=== PATIENT | male | born 1945 | race Caucasian/White ===

== ENCOUNTER 2017-01-24 17:01 | Inpatient (IN) | payer MEDICAID, MEDICARE ==
--- NOTE | 2017-01-24 17:46 | PCM.HP ---
H&P History of Present Illness - General Date of Service: 01/24/17 Source of Information: Patient, Family History Limitations: Reports: No Limitations - History of Present Illness Initial Comments - Free Text/Narative: Found to be a diabetic 3 weeks ago while in [place]. Found a heel lesion caused from 2 tacks in his shoe which caused a lesion on the heel. He said the lesions were small and in the last week got larger. Onset of Symptoms: Reports: Gradual Location: Reports: Lower Extremity, Right denies Pain Score (Numeric/FACES): 0 - Related Data Allergies/Adverse Reactions: Allergies Allergy/AdvReac Type Severity Reaction Status Date / Time No Known Allergies Allergy Verified 01/24/17 17:28 Home Medications: Home Meds glipiZIDE [Glipizide] 5 mg PO BID 01/24/17 [History] metFORMIN [Glucophage] 500 mg PO BIDMEALS 01/24/17 [History] H&P Review of Systems - Review of Systems: Review Of Systems: See Below General: Reports: Weakness, Fatigue HEENT: Reports: Visual Changes Pulmonary: Reports: No Symptoms Cardiovascular: Reports: No Symptoms Gastrointestinal: Reports: No Symptoms Genitourinary: Reports: No Symptoms Musculoskeletal: Reports: No Symptoms Skin: Reports: No Symptoms Psychiatric: Reports: No Symptoms Neurological: Reports: No Symptoms Hematologic/Lymphatic: Reports: No Symptoms Immunologic: Reports: No Symptoms Exam - Exam Exam: See Below - Vital Signs Weight: 197 lb - Exam General: Alert, Oriented, 4 HEENT: PERRLA, Hearing Intact, Mucosa Moist & [place], Nares Patent, Normal Nasal Septum, Posterior Pharynx Clear, Conjunctiva Clear, EOMI, EACs Clear, TMs Clear Neck: Supple, Trachea Midline, 2 Lungs: Clear to Auscultation, Normal Respiratory Effort Cardiovascular: Regular Rate GI/Abdominal Exam: Normal Bowel Sounds, Soft, Non-Tender, No Organomegaly, No Distention, No Abnormal Bruit, No Mass, Pelvis Stable Back Exam: Normal Inspection, Full Range of Motion, NT Extremities: Other (Pain and LROM right shoulder) Peripheral Pulses: 1+: Radial (L), Radial (R) Skin: Warm, Dry, Intact Neurological: Cranial Nerves Intact, Reflexes Equal Bilateral, Sensation Intact DTR: 1+: Bicep (L), Bicep (R) Psychiatric: Alert, Normal Affect, Normal Mood - Patient Data Result Diagrams: 01/26/17 05:47 01/26/17 05:47 *Q Meaningful Use (ADM) - VTE *Q VTE Criteria *Q: - Stroke *Q Stroke Criteria *Q: - AMI *Q AMI Criteria *Q: Problem List Initiated/Reviewed/Updated: Yes Assessment/Plan Comment:: Assessment/Plan: #1. DM II. Will continue with meds as taking as an out patient #2. Foot ulcer: Was seen by Dr. Lagunas and had debridement. Will start on Antibiotics. Cultures done in the clinic. #3. Right shoulder injury. Will get an x-ray #4. Hypertension. Will follow and treat as needed. #5. Thrombocytosis: May be due to the recent surgery and foot infection will follow closely #6. Anemia
[2017-01-24] MEDS ORDERED: Sodium Chloride 0.9% 10 ML Syringe FLUSH PRN (17:56)
[2017-01-24] MEDS: Vancomycin 1.3 GM in Sodium Chloride 0.9% 250 ML IV SCH (18:28)
[2017-01-24] MEDS: Piperacillin/Tazobactam/Dext 3.375 GM in Premix Bag 1 BAG IV SCH (20:41)
[2017-01-24] MEDS: Acetaminophen 325 MG Tab PO PRN (22:26)
[2017-01-24] MEDS: diphenhydrAMINE 25 MG Cap PO PRN (22:26)
[2017-01-25] MEDS: Piperacillin/Tazobactam/Dext 3.375 GM in Premix Bag 1 BAG IV SCH ×4 (01:55→19:48)
[2017-01-25] MEDS: Acetaminophen 325 MG Tab PO PRN (01:59)
[2017-01-25] MEDS: diphenhydrAMINE 25 MG Cap PO PRN ×2 (01:59→21:55)
[2017-01-25] MEDS: Vancomycin 1.3 GM in Sodium Chloride 0.9% 250 ML IV SCH ×2 (05:52→17:58)
[2017-01-25] MEDS: glipiZIDE 5 MG Tab PO SCH ×2 (08:29→17:04)
[2017-01-25] MEDS: metFORMIN 500 MG Tab PO SCH ×2 (08:30→17:03)
[2017-01-25] MEDS: Enoxaparin 40 MG/0.4 ML Syringe SUBCUT SCH (08:33)
[2017-01-25] MEDS: Aspirin 81 MG Tab.Chew PO SCH (08:58)
[2017-01-25] MEDS: Doxazosin 4 MG Tab PO SCH (09:04)
--- NOTE | 2017-01-25 10:32 | CR ---
Guillermo' view There is no reflux or body within the orbits. The patient is cleared for MRI.
--- NOTE | 2017-01-25 10:57 | CR ---
Right shoulder There is normal alignment. There is joint space loss of the glenohumeral joint. There is soft tissue calcification adjacent to the greater tuberosity. No acute findings are demonstrated. Impression: 1. No acute posttraumatic findings. 2. Osteoarthritis of the glenohumeral joint. 3. Soft tissue calcification suggesting calcific tendinitis versus bursitis.
--- NOTE | 2017-01-25 13:16 | MR ---
Right foot MRI. History: Foot ulcer. Evaluate for osteomyelitis. Technique: The hindfoot and ankle were imaged in the axial, coronal, and sagittal planes utilizing T 1 and T2 with fat saturation techniques. Findings: There is a ulcer involving the plantar aspect of the hindfoot. There is edema of the subcutaneous fa t. There is no evidence for abscess. There is normal marrow signal within the calcaneus. There are n o findings of osteomyelitis. There is a prominent plantar calcaneal spur. There is mild thickening of the plantar fascial. There may be chronic mild fasciitis. The muscles and tendons demonstrate normal signal. There is no joint effusion. Impression: 1. Plantar ulcer of the heel. Mild adjacent cellulitis. No evidence for abscess or osteomyelitis.
--- NOTE | 2017-01-25 17:26 | PCM.PN ---
- General Info Date of Service: 01/25/17 Functional Status: Reports: Pain Controlled - Review of Systems General: Reports: No Symptoms HEENT: Reports: No Symptoms Pulmonary: Reports: No Symptoms Cardiovascular: Reports: No Symptoms Gastrointestinal: Reports: No Symptoms Genitourinary: Reports: No Symptoms Musculoskeletal: Reports: Shoulder Pain, Other (shoulder pain is improving.) Skin: Reports: No Symptoms Neurological: Reports: No Symptoms Psychiatric: Reports: No Symptoms - Patient Data Vitals - Most Recent: Last Vital Signs Temp 98 F 01/25/17 15:00 Pulse 73 01/25/17 15:00 Resp 16 01/25/17 15:00 BP 137/67 01/25/17 15:00 Pulse Ox 96 01/25/17 15:00 Weight - Most Recent: 197 lb 0.011 oz I&O - Last 24 Hours: Intake & Output 01/25/17 01/25/17 01/25/17 06:59 14:59 22:59 Intake Total 350 150 Balance 350 150 Lab Results Last 24 Hours: Laboratory Results - last 24 hr 01/25/17 Range/Units 04:45 WBC 9.2 (4.5-11.0) K/uL RBC 3.12 L (4.30-5.90) M/uL Hgb 9.8 L (12.0-15.0) g/dL Hct 29.7 L (40.0-54.0) % MCV 95 (80-98) fL MCH 31 (27-31) pg MCHC 33 (32-36) % Plt Count 528 H (150-400) K/uL Neut % (Auto) 62 (36-66) % Lymph % (Auto) 20 L (24-44) % [place] % (Auto) 15 H (2-6) % Eos % (Auto) 1 L (2-4) % Baso % (Auto) 2 H (0-1) % Med Orders - Current: Current Medications Acetaminophen (Tylenol) 650 mg PO Q4H PRN PRN Reason: Headache/Pain Last Admin: 01/25/17 01:59 Dose: 650 mg Aspirin (Aspirin) 81 mg PO DAILY [facility] Last Admin: 01/25/17 08:58 Dose: 81 mg Diphenhydramine HCl (Benadryl) 25 mg PO Q4H PRN PRN Reason: Sleep Last Admin: 01/25/17 01:59 Dose: 25 mg Doxazosin Mesylate (Cardura) 4 mg PO DAILY [facility] Last Admin: 01/25/17 09:04 Dose: 4 mg Enoxaparin Sodium (Lovenox) 40 mg SUBCUT DAILY [facility] Last Admin: 01/25/17 08:33 Dose: 40 mg Glipizide (Glucotrol) 5 mg PO BIDAC [facility] Last Admin: 01/25/17 17:04 Dose: 5 mg Vancomycin HCl 1.3 gm/ Sodium (Chloride) 250 mls @ 250 mls/hr IV Q12H [facility] Last Admin: 01/25/17 05:52 Dose: 250 mls/hr Piperacillin/Tazobactam/ (Dextrose 3.375 gm/ Premix) 50 mls @ 100 mls/hr IV Q6H [facility] Last Admin: 01/25/17 14:55 Dose: 100 mls/hr Metformin HCl (Glucophage) 500 mg PO BIDMEALS [facility] Last Admin: 01/25/17 17:03 Dose: 500 mg Sodium Chloride (Saline Flush) 10 ml FLUSH ASDIRECTED PRN PRN Reason: Keep Vein Open - Exam General: Alert, Oriented Neck: Supple Lungs: Clear to Auscultation Cardiovascular: Regular Rate, Regular Rhythm GI/Abdominal Exam: Normal Bowel Sounds, Soft, Non-Tender, No Organomegaly, No Distention, No Abnormal Bruit, No Mass, Pelvis Stable (Male) Exam: Other Back Exam: Normal Inspection, Full Range of Motion Wound/Incisions: Healing Well Psy/Mental Status: Alert, Normal Affect, Normal Mood - Problem List Review Problem List Initiated/Reviewed/Updated: Yes - My Orders Last 24 Hours: My Active Orders 01/24/17 17:56 Patient Status [ADT] Routine Blood Glucose Check, Bedside [RC] QIDACANDBED Height and Weight [RC] DAILY Oxygen Therapy [RC] PRN Up to Chair [RC] QID Vital Signs [RC] Q4H Sodium Chloride 0.9% [Saline Flush] 10 ml FLUSH ASDIRECTED PRN Saline Lock Insert [OM.PC] Routine Resuscitation Status Routine 01/24/17 17:59 Intake and Output [RC] PRN 01/24/17 18:00 Vancomycin 1.3 gm Sodium Chloride 0.9% [Normal Saline] 250 ml IV Q12H 01/24/17 20:00 Piperacillin/Tazobactam/Dext [Zosyn in Dextrose Iso-Osmotic 3.375 GM] 3.375 gm Premix Bag 1 bag IV Q6H 01/24/17 20:42 Acetaminophen [Tylenol] 650 mg PO Q4H PRN diphenhydrAMINE [Benadryl] 25 mg PO Q4H PRN 01/25/17 07:30 glipiZIDE [Glucotrol] 5 mg PO BIDAC 01/25/17 07:45 Diabetes Education [RC] .PRN 01/25/17 08:00 metFORMIN [Glucophage] 500 mg PO BIDMEALS 01/25/17 09:00 Aspirin 81 mg PO DAILY Doxazosin [Cardura] 4 mg PO DAILY Enoxaparin [Lovenox] 40 mg SUBCUT DAILY 01/25/17 Breakfast Consistent Carbohydrate Diet [DIET] 01/26/17 05:11 CBC WITH AUTO DIFF [HEME] DAILY CBC WITH AUTO DIFF [HEME] Routine COMPREHENSIVE METABOLIC PN,CMP [CHEM] Routine 01/26/17 05:45 VANCOMYCIN TROUGH [CHEM] Timed 01/26/17 07:30 GLUCOSE POC LAB TO COLLECT [POC] QIDACANDBED 01/26/17 11:30 GLUCOSE POC LAB TO COLLECT [POC] QIDACANDBED 01/26/17 16:30 GLUCOSE POC LAB TO COLLECT [POC] QIDACANDBED 01/26/17 21:00 GLUCOSE POC LAB TO COLLECT [POC] QIDACANDBED 01/27/17 05:11 CBC WITH AUTO DIFF [HEME] DAILY 01/27/17 07:30 GLUCOSE POC LAB TO COLLECT [POC] QIDACANDBED 01/27/17 11:30 GLUCOSE POC LAB TO COLLECT [POC] QIDACANDBED 01/27/17 16:30 GLUCOSE POC LAB TO COLLECT [POC] QIDACANDBED 01/27/17 21:00 GLUCOSE POC LAB TO COLLECT [POC] QIDACANDBED 01/28/17 07:30 GLUCOSE POC LAB TO COLLECT [POC] QIDACANDBED - Plan Plan:: Assessment/Plan: #1. DM II. Will continue with meds as taking as an out patientand adjust. #2. Foot ulcer: Was seen by Dr. Lagunas and had debridement. On Antibiotics. Cultures done in the clinic pending. #3. Right shoulder injury. Improving #4. Hypertension. Still elevated. #5. Thrombocytosis: Will evaluate and have him see an oncologist if it continues elevated. #6. Anemia Cbc PENDING TOMORROW.
[2017-01-26] MEDS: Piperacillin/Tazobactam/Dext 3.375 GM in Premix Bag 1 BAG IV SCH ×4 (01:10→19:31)
[2017-01-26] MEDS: Vancomycin 1.3 GM in Sodium Chloride 0.9% 250 ML IV SCH ×2 (05:12→18:09)
--- NOTE | 2017-01-26 07:32 | PN ---
DATE OF SERVICE: 01/25/2017 SUBJECTIVE: The patient was seen at bedside for followup on infected ulcer in the right foot. The patient denies having any other problems. OBJECTIVE: GENERAL: The patient was alert and oriented x3 and in no acute distress. VITAL SIGNS: Per chart. DERMATOLOGIC: Examination revealed ulceration on the plantar lateral aspect of the right heel measured after debridement of necrotic tissue, 16 mm x 26 mm x 5 mm of depth and did not probe to bone. There was some yellow fibrotic and necrotic tissue around the edges of the wound, so after this was debrided, there was healthy bleeding tissue underneath. IMAGING: Radiographic examination, MRI done today of the right foot showed no signs of osteomyelitis in the right calcaneus, however, there were signs of cellulitis. LABORATORY DATA: His white count was 9.2. ASSESSMENT: 1. Diabetes mellitus. 2. Diabetic polyneuropathy. 3. Diabetic foot ulcer, right heel with cellulitis. PLAN: The patient was examined and evaluated. Ulceration was again sharply debrided to remove necrotic and fibrotic tissue down into the layer of the plantar fascia and then it was flushed with copious amounts of sterile saline and dressed with saline wet-to-dry, 4x4, Kerlix, and Coban. Orders were written for patient to remain nonweightbearing on the right foot. Keep peripheral boot on when the patient is in bed in order to keep the heel offloaded and patient is to continue IV Vanco per pharmacy dosing and IV Zosyn. The patient will be seen only by Dr. Estrada tomorrow and then by Dr. Teague on . Ordered PICC line today so that IV antibiotics should be continued and possibly will be continued after discharge. It is okay for Dr. Teague to discuss discharge of the patient on , provided that he has improved and Dr. Rahul Estrada is in agreement. We were asking if Dr. Teague can please check the patient's cultures that were taken yesterday, so that he can send patient home on appropriate antibiotics. Janak Lagunas DPM /[id number]
[2017-01-26] MEDS: glipiZIDE 5 MG Tab PO SCH ×2 (07:52→16:41)
[2017-01-26] MEDS: metFORMIN 500 MG Tab PO SCH ×2 (07:52→16:41)
[2017-01-26] MEDS: Doxazosin 4 MG Tab PO SCH (08:55)
[2017-01-26] MEDS: Aspirin 81 MG Tab.Chew PO SCH (08:57)
[2017-01-26] MEDS: Enoxaparin 40 MG/0.4 ML Syringe SUBCUT SCH (08:57)
--- NOTE | 2017-01-26 17:21 | PCM.PN ---
- General Info Date of Service: 01/26/17 Functional Status: Reports: Pain Controlled - Review of Systems HEENT: Reports: No Symptoms Pulmonary: Reports: No Symptoms, Shortness of Breath, Cough Cardiovascular: Reports: No Symptoms Gastrointestinal: Reports: No Symptoms Genitourinary: Reports: No Symptoms Musculoskeletal: Reports: No Symptoms Skin: Reports: No Symptoms Neurological: Reports: No Symptoms Psychiatric: Reports: No Symptoms - Patient Data Vitals - Most Recent: Last Vital Signs Temp 97.5 F 01/26/17 15:51 Pulse 82 01/26/17 15:51 Resp 16 01/26/17 15:51 BP 135/70 01/26/17 15:51 Pulse Ox 95 01/26/17 15:51 Weight - Most Recent: 197 lb 0.011 oz I&O - Last 24 Hours: Intake & Output 01/26/17 01/26/17 01/26/17 06:59 14:59 22:59 Intake Total 876 Output Total 2000 Balance -1124 Lab Results Last 24 Hours: Laboratory Results - last 24 hr 01/26/17 01/26/17 Range/Units 05:47 05:47 WBC 7.4 (4.5-11.0) K/uL RBC 3.21 L (4.30-5.90) M/uL Hgb 10.0 L (12.0-15.0) g/dL Hct 30.7 L (40.0-54.0) % MCV 96 (80-98) fL MCH 31 (27-31) pg MCHC 33 (32-36) % Plt Count 500 H (150-400) K/uL Neut % (Auto) 62 (36-66) % Lymph % (Auto) 21 L (24-44) % [place] % (Auto) 12 H (2-6) % Eos % (Auto) 2 (2-4) % Baso % (Auto) 3 H (0-1) % Sodium 133 L (140-148) mmol/L Potassium 4.1 (3.6-5.2) mmol/L Chloride 101 (100-108) mmol/L Carbon Dioxide 25 (21-32) mmol/L Anion Gap 11.1 (5.0-14.0) mmol/L BUN 10 (7-18) mg/dL Creatinine 0.8 (0.8-1.3) mg/dL Est Cr Clr Drug Dosing 80.13 mL/min Estimated GFR (MDRD) > 60 (>60) Glucose 88 (74-106) mg/dL Calcium 8.3 L (8.5-10.1) mg/dL Total Bilirubin 0.4 (0.2-1.0) mg/dL AST 31 (15-37) U/L ALT 42 (12-78) U/L Alkaline Phosphatase 79 (46-116) U/L Total Protein 6.9 (6.4-8.2) g/dL Albumin 1.8 L (3.4-5.0) g/dL Globulin 5.1 H (2.3-3.5) g/dL Albumin/Globulin Ratio 0.4 L (1.2-2.2) Med Orders - Current: Current Medications Acetaminophen (Tylenol) 650 mg PO Q4H PRN PRN Reason: Headache/Pain Last Admin: 01/25/17 01:59 Dose: 650 mg Aspirin (Aspirin) 81 mg PO DAILY [facility] Last Admin: 01/26/17 08:57 Dose: 81 mg Diphenhydramine HCl (Benadryl) 25 mg PO Q4H PRN PRN Reason: Sleep Last Admin: 01/25/17 21:55 Dose: 25 mg Doxazosin Mesylate (Cardura) 4 mg PO DAILY [facility] Last Admin: 01/26/17 08:55 Dose: 4 mg Enoxaparin Sodium (Lovenox) 40 mg SUBCUT DAILY [facility] Last Admin: 01/26/17 08:57 Dose: 40 mg Glipizide (Glucotrol) 5 mg PO BIDAC [facility] Last Admin: 01/26/17 16:41 Dose: 5 mg Vancomycin HCl 1.3 gm/ Sodium (Chloride) 250 mls @ 250 mls/hr IV Q12H [facility] Last Admin: 01/26/17 05:12 Dose: 250 mls/hr Piperacillin/Tazobactam/ (Dextrose 3.375 gm/ Premix) 50 mls @ 100 mls/hr IV Q6H [facility] Last Admin: 01/26/17 15:05 Dose: 100 mls/hr Metformin HCl (Glucophage) 500 mg PO BIDMEALS [facility] Last Admin: 01/26/17 16:41 Dose: 500 mg Sodium Chloride (Saline Flush) 10 ml FLUSH ASDIRECTED PRN PRN Reason: Keep Vein Open - Exam General: Alert Neck: Supple Lungs: Clear to Auscultation Cardiovascular: Regular Rate GI/Abdominal Exam: Normal Bowel Sounds Extremities: Other (lesion of the foot -heel stable) Skin: Warm, Dry, Intact Wound/Incisions: Healing Well Psy/Mental Status: Alert, Normal Affect, Normal Mood - Problem List Review Problem List Initiated/Reviewed/Updated: Yes - My Orders Last 24 Hours: My Active Orders 01/26/17 14:31 Chest 1V Frontal [CR] Routine 01/27/17 05:11 CBC WITH AUTO DIFF [HEME] DAILY 01/27/17 05:30 VANCOMYCIN TROUGH [CHEM] Timed 01/27/17 07:30 GLUCOSE POC LAB TO COLLECT [POC] QIDACANDBED 01/27/17 11:30 GLUCOSE POC LAB TO COLLECT [POC] QIDACANDBED 01/27/17 16:30 GLUCOSE POC LAB TO COLLECT [POC] QIDACANDBED 01/27/17 21:00 GLUCOSE POC LAB TO COLLECT [POC] QIDACANDBED 01/28/17 07:30 GLUCOSE POC LAB TO COLLECT [POC] QIDACANDBED - Plan Plan:: Assessment/Plan: #1. DM II. Will continue with meds as taking as an out patientand adjust.Blood sugar 133 this AM #2. Foot ulcer: Was seen by Dr. Lagunas and had debridement. On Antibiotics. Cultures done in the clinic pending. #3. Right shoulder injury. Improving #4. Hypertension. 118 systolic this afternoon. #5. Thrombocytosis: Will dropped to 500,000 today. #6. Anemia Cbc PENDING TOMORROW.
[2017-01-26] MEDS: diphenhydrAMINE 25 MG Cap PO PRN (22:33)
[2017-01-27] MEDS: Piperacillin/Tazobactam/Dext 3.375 GM in Premix Bag 1 BAG IV SCH ×3 (01:55→13:08)
[2017-01-27] MEDS: Vancomycin 1.3 GM in Sodium Chloride 0.9% 250 ML IV SCH (05:04)
[2017-01-27] MEDS: glipiZIDE 5 MG Tab PO SCH ×2 (08:25→16:34)
[2017-01-27] MEDS: Aspirin 81 MG Tab.Chew PO SCH (08:25)
[2017-01-27] MEDS: metFORMIN 500 MG Tab PO SCH ×2 (08:25→16:35)
[2017-01-27] MEDS: Doxazosin 4 MG Tab PO SCH (08:25)
[2017-01-27] MEDS: Enoxaparin 40 MG/0.4 ML Syringe SUBCUT SCH (08:46)
--- NOTE | 2017-01-27 10:06 | CR ---
Portable chest Limited study was performed for PICC line placement. The PIC line on the left is demonstrated with the tip at the Junction of the SVC and right atrium. Impression: 1. PICC line in good position.
--- NOTE | 2017-01-27 12:46 | PCM.PN ---
- General Info Date of Service: 01/27/17 Functional Status: Reports: Pain Controlled - Review of Systems General: Reports: No Symptoms HEENT: Reports: No Symptoms Pulmonary: Reports: No Symptoms Cardiovascular: Reports: No Symptoms Gastrointestinal: Reports: No Symptoms Genitourinary: Reports: No Symptoms Musculoskeletal: Reports: No Symptoms Neurological: Reports: No Symptoms Psychiatric: Reports: No Symptoms - Patient Data Vitals - Most Recent: Last Vital Signs Temp 96.7 F 01/27/17 11:40 Pulse 74 01/27/17 11:40 Resp 16 01/27/17 11:40 BP 138/73 01/27/17 11:40 Pulse Ox 100 01/27/17 11:40 Weight - Most Recent: 189 lb 9.561 oz I&O - Last 24 Hours: Intake & Output 01/26/17 01/27/17 01/27/17 22:59 06:59 14:59 Intake Total 3300 710 480 Output Total 700 300 Balance 3300 10 180 Lab Results Last 24 Hours: Laboratory Results - last 24 hr 01/27/17 01/27/17 Range/Units 04:45 04:45 WBC 7.3 (4.5-11.0) K/uL RBC 3.03 L (4.30-5.90) M/uL Hgb 9.3 L (12.0-15.0) g/dL Hct 29.2 L (40.0-54.0) % MCV 96 (80-98) fL MCH 31 (27-31) pg MCHC 32 (32-36) % Plt Count 519 H (150-400) K/uL Neut % (Auto) 60 (36-66) % Lymph % (Auto) 23 L (24-44) % [place] % (Auto) 13 H (2-6) % Eos % (Auto) 2 (2-4) % Baso % (Auto) 2 H (0-1) % Vancomycin Trough 12.3 (10.0-20.0) ug/mL Med Orders - Current: Current Medications Acetaminophen (Tylenol) 650 mg PO Q4H PRN PRN Reason: Headache/Pain Last Admin: 01/25/17 01:59 Dose: 650 mg Aspirin (Aspirin) 81 mg PO DAILY [facility] Last Admin: 01/27/17 08:25 Dose: 81 mg Diphenhydramine HCl (Benadryl) 25 mg PO Q4H PRN PRN Reason: Sleep Last Admin: 01/26/17 22:33 Dose: 25 mg Doxazosin Mesylate (Cardura) 4 mg PO DAILY [facility] Last Admin: 01/27/17 08:25 Dose: 4 mg Enoxaparin Sodium (Lovenox) 40 mg SUBCUT DAILY [facility] Last Admin: 01/27/17 08:46 Dose: 40 mg Glipizide (Glucotrol) 5 mg PO BIDAC [facility] Last Admin: 01/27/17 08:25 Dose: 5 mg Vancomycin HCl 1.3 gm/ Sodium (Chloride) 250 mls @ 250 mls/hr IV Q12H [facility] Last Admin: 01/27/17 05:04 Dose: 250 mls/hr Piperacillin/Tazobactam/ (Dextrose 3.375 gm/ Premix) 50 mls @ 100 mls/hr IV Q6H [facility] Last Admin: 01/27/17 08:34 Dose: 100 mls/hr Metformin HCl (Glucophage) 500 mg PO BIDMEALS [facility] Last Admin: 01/27/17 08:25 Dose: 500 mg Sodium Chloride (Saline Flush) 10 ml FLUSH ASDIRECTED PRN PRN Reason: Keep Vein Open - Exam General: Alert, Oriented HEENT: Pupils Equal, Pupils Reactive, EOMI, Mucous Membr. Moist/[place] Neck: Supple Lungs: Clear to Auscultation, Normal Respiratory Effort Cardiovascular: Regular Rate, Regular Rhythm GI/Abdominal Exam: Normal Bowel Sounds, Soft, Non-Tender, No Organomegaly, No Distention, No Abnormal Bruit, No Mass, Pelvis Stable Back Exam: Normal Inspection, Full Range of Motion Extremities: Other (heel healing) Skin: Warm, Dry, Intact Wound/Incisions: Healing Well - Problem List Review Problem List Initiated/Reviewed/Updated: Yes - My Orders Last 24 Hours: My Active Orders 01/28/17 07:30 GLUCOSE POC LAB TO COLLECT [POC] QIDACANDBED - Plan Plan:: Assessment/Plan: #1. DM II. Will continue with meds as taking as an out patientand adjust.Blood sugar 80 this AM #2. Foot ulcer: Was seen by Dr. Lagunas and had debridement. On Antibiotics. Will be seen by Dr Teague got orders for antibiotics/pic. #3. Right shoulder injury. Improving #4. Hypertension. 118 systolic this afternoon. #5. Thrombocytosis: Will dropped to 500,000 today. #6. Anemia Cbc 9.3 hb and wbc 7.3. Plan home today
--- NOTE | 2017-01-27 12:48 | PCM.DCSUM1 ---
Discharge Summary - Hospital Course HPI Initial Comments: Found to be a diabetic 3 weeks ago while in [place]. Found a heel lesion caused from 2 tacks in his shoe which caused a lesion on the heel. He said the lesions were small and in the last week got larger. Brief History: Seen by Dr. Lagunas and debrided the heel and brought into the hospital for treatment and antiobitics. Followed DM II and had education for DM control. - Discharge Data Discharge Date: 01/27/17 Discharge Disposition: Home, Self-Care 01 Condition: Good - Patient Summary/Data Hospital Course: MRI was Neg. for osteo. cultures pending and will go home on IV meds for the infection ELIZA is pending prior to discharge. - Patient Instructions Diet: Heart Healthy Diet, Diabetic Diet Activity: As Tolerated Wound/Incision Care: Keep Operative Site/Wound Site Clean and Dry - Discharge Plan Home Medications: Home Meds glipiZIDE [Glipizide] 5 mg PO BID 01/24/17 [History] metFORMIN [Glucophage] 500 mg PO BIDMEALS 01/24/17 [History] Aspirin 81 mg PO DAILY tab.chew 01/27/17 [Rx] Doxazosin [Cardura] 4 mg PO DAILY tablet 01/27/17 [Rx] - Discharge Summary/Plan Comment DC Time >30 min.: Yes Discharge Summary/Plan Comment: DMII, Diabetic foot ulcer, HTN. Polycythesia. - Patient Data Vitals - Most Recent: Last Vital Signs Temp 96.7 F 01/27/17 11:40 Pulse 74 01/27/17 11:40 Resp 16 01/27/17 11:40 BP 138/73 01/27/17 11:40 Pulse Ox 100 01/27/17 11:40 Weight - Most Recent: 189 lb 9.561 oz I&O - Last 24 hours: Intake & Output 01/26/17 01/27/17 01/27/17 22:59 06:59 14:59 Intake Total 3300 710 480 Output Total 700 300 Balance 3300 10 180 Lab Results - Last 24 hrs: Laboratory Results - last 24 hr 01/27/17 01/27/17 Range/Units 04:45 04:45 WBC 7.3 (4.5-11.0) K/uL RBC 3.03 L (4.30-5.90) M/uL Hgb 9.3 L (12.0-15.0) g/dL Hct 29.2 L (40.0-54.0) % MCV 96 (80-98) fL MCH 31 (27-31) pg MCHC 32 (32-36) % Plt Count 519 H (150-400) K/uL Neut % (Auto) 60 (36-66) % Lymph % (Auto) 23 L (24-44) % [place] % (Auto) 13 H (2-6) % Eos % (Auto) 2 (2-4) % Baso % (Auto) 2 H (0-1) % Vancomycin Trough 12.3 (10.0-20.0) ug/mL Med Orders - Current: Current Medications Acetaminophen (Tylenol) 650 mg PO Q4H PRN PRN Reason: Headache/Pain Last Admin: 01/25/17 01:59 Dose: 650 mg Aspirin (Aspirin) 81 mg PO DAILY [facility] Last Admin: 01/27/17 08:25 Dose: 81 mg Diphenhydramine HCl (Benadryl) 25 mg PO Q4H PRN PRN Reason: Sleep Last Admin: 01/26/17 22:33 Dose: 25 mg Doxazosin Mesylate (Cardura) 4 mg PO DAILY [facility] Last Admin: 01/27/17 08:25 Dose: 4 mg Enoxaparin Sodium (Lovenox) 40 mg SUBCUT DAILY [facility] Last Admin: 01/27/17 08:46 Dose: 40 mg Glipizide (Glucotrol) 5 mg PO BIDAC [facility] Last Admin: 01/27/17 08:25 Dose: 5 mg Vancomycin HCl 1.3 gm/ Sodium (Chloride) 250 mls @ 250 mls/hr IV Q12H [facility] Last Admin: 01/27/17 05:04 Dose: 250 mls/hr Piperacillin/Tazobactam/ (Dextrose 3.375 gm/ Premix) 50 mls @ 100 mls/hr IV Q6H [facility] Last Admin: 01/27/17 08:34 Dose: 100 mls/hr Metformin HCl (Glucophage) 500 mg PO BIDMEALS [facility] Last Admin: 01/27/17 08:25 Dose: 500 mg Sodium Chloride (Saline Flush) 10 ml FLUSH ASDIRECTED PRN PRN Reason: Keep Vein Open *Q Meaningful Use (DIS) - VTE *Q VTE Criteria *Q: - Stroke *Q Stroke Criteria *Q: - AMI *Q AMI Criteria *Q:
--- NOTE | 2017-01-27 12:50 | PCM.HP ---
H&P History of Present Illness - General Date of Service: 01/24/17 Admit Problem/Dx: Admission Diagnosis/Problem Admission Diagnosis/Problem Diabetic foot ulcer - History of Present Illness Initial Comments - Free Text/Narative: Comes in after having a foot ulcer and debrided at the clinic by Dr. Payan. Recent know DM II denies Pain Score (Numeric/FACES): 0 - Related Data Allergies/Adverse Reactions: Allergies Allergy/AdvReac Type Severity Reaction Status Date / Time No Known Allergies Allergy Verified 01/24/17 17:28 Home Medications: Home Meds glipiZIDE [Glipizide] 5 mg PO BID 01/24/17 [History] metFORMIN [Glucophage] 500 mg PO BIDMEALS 01/24/17 [History] Past Medical History Musculoskeletal History: Reports: Arthritis Endocrine/Metabolic History: Reports: Diabetes, Type II Oncologic (Cancer) History: Reports: Basal Cell Carcinoma - Infectious Disease History Infectious Disease History: Reports: Chicken Pox, Measles, Mumps - Past Surgical History HEENT Surgical History: Reports: Adenoidectomy, Tonsillectomy Social & Family History - Family History Family Medical History: Noncontributory - Tobacco Use Smoking Status *Q: Never Smoker Second Hand Smoke Exposure: No - Alcohol Use Days Per Week of Alcohol Use: 5 Number of Drinks Per Day: 1 Total Drinks Per Week: 5 Date of Last Drink: 01/22/17 Time of Last Drink: 18:00 - Recreational Drug Use Recreational Drug Use: No Exam - Vital Signs Vital Signs: Last Vital Signs Temp 96.7 F 01/27/17 11:40 Pulse 74 01/27/17 11:40 Resp 16 01/27/17 11:40 BP 138/73 01/27/17 11:40 Pulse Ox 100 01/27/17 11:40 Weight: 189 lb 9.561 oz - Patient Data Lab Results Last 24 hrs: Laboratory Results - last 24 hr 01/27/17 01/27/17 Range/Units 04:45 04:45 WBC 7.3 (4.5-11.0) K/uL RBC 3.03 L (4.30-5.90) M/uL Hgb 9.3 L (12.0-15.0) g/dL Hct 29.2 L (40.0-54.0) % MCV 96 (80-98) fL MCH 31 (27-31) pg MCHC 32 (32-36) % Plt Count 519 H (150-400) K/uL Neut % (Auto) 60 (36-66) % Lymph % (Auto) 23 L (24-44) % [place] % (Auto) 13 H (2-6) % Eos % (Auto) 2 (2-4) % Baso % (Auto) 2 H (0-1) % Vancomycin Trough 12.3 (10.0-20.0) ug/mL Result Diagrams: 01/27/17 04:45 01/26/17 05:47 *Q Meaningful Use (ADM) - VTE *Q VTE Criteria *Q: - Stroke *Q Stroke Criteria *Q: - AMI *Q AMI Criteria *Q: Orders Last 24hrs: Active Orders 24 hr Category Date Time Status GLUCOSE POC LAB TO COLLECT [POC] QIDACANDBED Lab 01/28/17 07:30 Ordered Medication Orders Acetaminophen (Tylenol) 650 mg PO Q4H PRN PRN Reason: Headache/Pain Last Admin: 01/25/17 01:59 Dose: 650 mg Admin: 01/24/17 22:26 Dose: 650 mg Aspirin (Aspirin) 81 mg PO DAILY [facility] Last Admin: 01/27/17 08:25 Dose: 81 mg Admin: 01/26/17 08:57 Dose: 81 mg Admin: 01/25/17 08:58 Dose: 81 mg Diphenhydramine HCl (Benadryl) 25 mg PO Q4H PRN PRN Reason: Sleep Last Admin: 01/26/17 22:33 Dose: 25 mg Admin: 01/25/17 21:55 Dose: 25 mg Admin: 01/25/17 01:59 Dose: 25 mg Admin: 01/24/17 22:26 Dose: 25 mg Doxazosin Mesylate (Cardura) 4 mg PO DAILY [facility] Last Admin: 01/27/17 08:25 Dose: 4 mg Admin: 01/26/17 08:55 Dose: 4 mg Admin: 01/25/17 09:04 Dose: 4 mg Enoxaparin Sodium (Lovenox) 40 mg SUBCUT DAILY [facility] Last Admin: 01/27/17 08:46 Dose: 40 mg Admin: 01/26/17 08:57 Dose: 40 mg Admin: 01/25/17 08:33 Dose: 40 mg Glipizide (Glucotrol) 5 mg PO BIDAC [facility] Last Admin: 01/27/17 08:25 Dose: 5 mg Admin: 01/26/17 16:41 Dose: 5 mg Admin: 01/26/17 07:52 Dose: 5 mg Admin: 01/25/17 17:04 Dose: 5 mg Admin: 01/25/17 08:29 Dose: 5 mg Vancomycin HCl 1.3 gm/ Sodium (Chloride) 250 mls @ 250 mls/hr IV Q12H [facility] Last Admin: 01/27/17 05:04 Dose: 250 mls/hr Admin: 01/26/17 18:09 Dose: 250 mls/hr Admin: 01/26/17 05:12 Dose: 250 mls/hr Admin: 01/25/17 17:58 Dose: 250 mls/hr Admin: 01/25/17 05:52 Dose: 250 mls/hr Admin: 01/24/17 18:28 Dose: 250 mls/hr Piperacillin/Tazobactam/ (Dextrose 3.375 gm/ Premix) 50 mls @ 100 mls/hr IV Q6H [facility] Last Admin: 01/27/17 08:34 Dose: 100 mls/hr Infusion: 01/27/17 02:25 Dose: 100 mls/hr Admin: 01/27/17 01:55 Dose: 100 mls/hr Infusion: 01/26/17 20:01 Dose: 100 mls/hr Admin: 01/26/17 19:31 Dose: 100 mls/hr Infusion: 01/26/17 15:35 Dose: 100 mls/hr Admin: 01/26/17 15:05 Dose: 100 mls/hr Infusion: 01/26/17 08:39 Dose: 100 mls/hr Admin: 01/26/17 08:09 Dose: 100 mls/hr Infusion: 01/26/17 01:40 Dose: 100 mls/hr Admin: 01/26/17 01:10 Dose: 100 mls/hr Infusion: 01/25/17 20:18 Dose: 100 mls/hr Admin: 01/25/17 19:48 Dose: 100 mls/hr Infusion: 01/25/17 15:25 Dose: 100 mls/hr Admin: 01/25/17 14:55 Dose: 100 mls/hr Infusion: 01/25/17 08:59 Dose: 100 mls/hr Admin: 01/25/17 08:29 Dose: 100 mls/hr Infusion: 01/25/17 02:25 Dose: 100 mls/hr Admin: 01/25/17 01:55 Dose: 100 mls/hr Infusion: 01/24/17 21:11 Dose: 100 mls/hr Admin: 01/24/17 20:41 Dose: 100 mls/hr Metformin HCl (Glucophage) 500 mg PO BIDMEALS MELISSA Last Admin: 01/27/17 08:25 Dose: 500 mg Admin: 01/26/17 16:41 Dose: 500 mg Admin: 01/26/17 07:52 Dose: 500 mg Admin: 01/25/17 17:03 Dose: 500 mg Admin: 01/25/17 08:30 Dose: 500 mg Sodium Chloride (Saline Flush) 10 ml FLUSH ASDIRECTED PRN PRN Reason: Keep Vein Open Assessment/Plan Comment:: Assessment/Plan: #1. DM II. Will continue with meds as taking as an out patientand adjust.Blood sugar 80 this AM #2. Foot ulcer: Was seen by Dr. Lagunas and had debridement. On Antibiotics. Will be seen by Dr Teague got orders for antibiotics/pic. #3. Right shoulder injury. Improving #4. Hypertension. 118 systolic this afternoon. #5. Thrombocytosis: Will dropped to 500,000 today. #6. Anemia Cbc 9.3 hb and wbc 7.3. Plan home today
[2017-01-27 16:44] VITALS: BP 156/67
[2017-01-27] MEDS ORDERED: Vancomycin 1.3 GM in Sodium Chloride 0.9% 250 ML IV ONE (17:00)
== END 2017-01-27 17:33 | disposition home or self-care (01) | DRG 638 ==
LOC: JP.ICU 17:01
PROVIDERS: ADMIT Internal Medicine; ATTEND Internal Medicine
PROC: 0HDMXZZ Extraction of Right Foot Skin, External Approach (ICD-10-PCS; principal; 2017-01-25)
PROC: 05H533Z Insertion of Infusion Device into Right Subclavian Vein, Percutaneous Approach (ICD-10-PCS; 2017-01-26)
DX: E11.621 Type 2 diabetes mellitus with foot ulcer (principal); L97.419 Non-pressure chronic ulcer of right heel and midfoot with unspecified severity; L03.115 Cellulitis of right lower limb; Z79.84 Long term (current) use of oral hypoglycemic drugs; E11.628 Type 2 diabetes mellitus with other skin complications; I10 Essential (primary) hypertension; S49.91XA Unspecified injury of right shoulder and upper arm, initial encounter; E11.42 Type 2 diabetes mellitus with diabetic polyneuropathy; D47.3 Essential (hemorrhagic) thrombocythemia; D64.9 Anemia, unspecified; Z79.82 Long term (current) use of aspirin
CPT/HCPCS: 36415; 70030-26; 70030-50; 71010; 71010-26; 73030-26-RT; 73030-RT; 73718-26-RT; 73718-RT; 80053; 80202; 82962; 85025; 93922; A9270-GY; J1650; J2543; J3370; J7050

== ENCOUNTER 2017-07-26 17:29 | Inpatient (IN) | payer MEDICARE ==
[2017-07-26] MEDS ORDERED: Adenosine 6 MG/2 ML SDV IVPUSH ONE ×2 (17:38→17:58)
--- NOTE | 2017-07-26 17:45 | EDM.PDOC ---
ED HPI GENERAL MEDICAL PROBLEM - General Chief Complaint: Cardiovascular Problem Stated Complaint: [facility] Time Seen by Provider: 07/26/17 17:59 Source of Information: Reports: Patient History Limitations: Reports: No Limitations - History of Present Illness INITIAL COMMENTS - FREE TEXT/NARRATIVE: pt was at Dr Cortez office today--am and he was checked over. His heartrate was about 80. He went home and he noted that he was very dizzy when he stood up. He felt like his heart was going rapid. He did not have a any chest pain Onset: Today Duration: Hour(s): Location: Reports: Chest, Other (pt feels like his heart is racing. ) - Related Data Allergies Allergy/AdvReac Type Severity Reaction Status Date / Time No Known Allergies Allergy Verified 02/21/17 09:44 Home Meds: Home Meds glipiZIDE [Glipizide] 5 mg PO BID 01/24/17 [History] metFORMIN [Glucophage] 500 mg PO BIDMEALS 01/24/17 [History] Aspirin 81 mg PO DAILY tab.chew 01/27/17 [Rx] Doxazosin [Cardura] 4 mg PO DAILY tablet 01/27/17 [Rx] Past Medical History Musculoskeletal History: Reports: Arthritis Endocrine/Metabolic History: Reports: Diabetes, Type II Oncologic (Cancer) History: Reports: Basal Cell Carcinoma - Infectious Disease History Infectious Disease History: Reports: Chicken Pox, Measles, Mumps - Past Surgical History HEENT Surgical History: Reports: Adenoidectomy, Tonsillectomy Social & Family History - Family History Family Medical History: Noncontributory - Tobacco Use Smoking Status *Q: Never Smoker Second Hand Smoke Exposure: No - Alcohol Use Days Per Week of Alcohol Use: 5 Number of Drinks Per Day: 1 Total Drinks Per Week: 5 - Recreational Drug Use Recreational Drug Use: No ED ROS GENERAL - Review of Systems Review Of Systems: See Below Constitutional: Reports: No Symptoms HEENT: Reports: No Symptoms Respiratory: Reports: No Symptoms Cardiovascular: Reports: Lightheadedness, Palpitations Endocrine: Reports: No Symptoms GI/Abdominal: Reports: No Symptoms : Reports: No Symptoms Musculoskeletal: Reports: No Symptoms Skin: Reports: No Symptoms ED EXAM, GENERAL - Physical Exam Exam: See Below Free Text/Narrative:: pt arrived with a history of being very dizzy and and weak when he goes to stand up. Exam Limited By: No Limitations General Appearance: Alert, Anxious, Mild Distress, Other (pupils equal and reactive. ) Ears: Normal TMs Nose: Normal Inspection Throat/Mouth: Normal Inspection Head: Atraumatic Neck: Normal Inspection Respiratory/Chest: No Respiratory Distress Cardiovascular: Regular Rate, Rhythm, Tachycardia GI/Abdominal: Soft, Non-Tender (Male) Exam: Deferred Rectal (Males) Exam: Deferred Back Exam: Normal Inspection Extremities: Normal Inspection Neurological: Alert, Oriented, Normal Cognition, Other ( very pale appearing. ) Psychiatric: Anxious Course - Vital Signs Last Recorded V/S: Last Vital Signs Temp 36.6 C 07/28/17 00:00 Pulse 77 07/28/17 06:00 Resp 26 H 07/28/17 06:00 BP 110/76 07/28/17 06:00 Pulse Ox 92 L 07/28/17 06:00 - Orders/Labs/Meds Orders: Medication Orders Aspirin (Halfprin) 81 mg PO DAILY [facility] Last Admin: 07/27/17 08:22 Dose: 81 mg Diltiazem HCl (Cardizem Cd) 120 mg PO BID [facility] Last Admin: 07/27/17 20:43 Dose: 120 mg Doxazosin Mesylate (Cardura) 4 mg PO DAILY [facility] Last Admin: 07/27/17 08:24 Dose: Enoxaparin Sodium (Lovenox) 30 mg SUBCUT BEDTIME [facility] Last Admin: 07/27/17 20:42 Dose: 30 mg Glipizide (Glucotrol) 5 mg PO BIDAC [facility] Last Admin: 07/27/17 16:25 Dose: 5 mg Admin: 07/27/17 08:21 Dose: 5 mg Admin: 07/26/17 20:53 Dose: 5 mg Metformin HCl (Glucophage Xr) 500 mg PO BIDMEALS [facility] Last Admin: 07/27/17 17:39 Dose: 500 mg Tamsulosin HCl (Flomax) 0.4 mg PO BEDTIME [facility] Last Admin: 07/27/17 20:43 Dose: 0.4 mg Labs: Laboratory Tests 07/26/17 07/26/17 07/26/17 Range/Units 17:39 17:39 17:39 WBC 8.9 (4.5-11.0) K/uL RBC 3.50 L (4.30-5.90) M/uL Hgb 11.1 L (12.0-15.0) g/dL Hct 31.7 L (40.0-54.0) % MCV 91 (80-98) fL MCH 32 H (27-31) pg MCHC 35 (32-36) % Plt Count 282 (150-400) K/uL Neut % (Auto) 77 H (36-66) % Lymph % (Auto) 10 L (24-44) % [place] % (Auto) 12 H (2-6) % Eos % (Auto) 1 L (2-4) % Baso % (Auto) 0 (0-1) % Sodium 110 L* (140-148) mmol/L Potassium 5.5 H (3.6-5.2) mmol/L Chloride 77 L (100-108) mmol/L Carbon Dioxide 19 L (21-32) mmol/L Anion Gap 19.5 H (5.0-14.0) mmol/L BUN 23 H D (7-18) mg/dL Creatinine 1.0 (0.8-1.3) mg/dL Est Cr Clr Drug Dosing 66.50 mL/min Estimated GFR (MDRD) > 60 (>60) Glucose 155 H (74-106) mg/dL Calcium 7.8 L (8.5-10.1) mg/dL Total Bilirubin 0.6 (0.2-1.0) mg/dL AST 27 (15-37) U/L ALT 51 (12-78) U/L Alkaline Phosphatase 70 (46-116) U/L Troponin I < 0.017 (0.000-0.056) ng/mL Total Protein 6.0 L (6.4-8.2) g/dL Albumin 2.8 L (3.4-5.0) g/dL Globulin 3.2 (2.3-3.5) g/dL Albumin/Globulin Ratio 0.9 L (1.2-2.2) TSH, Ultra Sensitive (0.358-3.740) uIU/mL 07/26/17 Range/Units 17:39 WBC (4.5-11.0) K/uL RBC (4.30-5.90) M/uL Hgb (12.0-15.0) g/dL Hct (40.0-54.0) % MCV (80-98) fL MCH (27-31) pg MCHC (32-36) % Plt Count (150-400) K/uL Neut % (Auto) (36-66) % Lymph % (Auto) (24-44) % [place] % (Auto) (2-6) % Eos % (Auto) (2-4) % Baso % (Auto) (0-1) % Sodium (140-148) mmol/L Potassium (3.6-5.2) mmol/L Chloride (100-108) mmol/L Carbon Dioxide (21-32) mmol/L Anion Gap (5.0-14.0) mmol/L BUN (7-18) mg/dL Creatinine (0.8-1.3) mg/dL Est Cr Clr Drug Dosing mL/min Estimated GFR (MDRD) (>60) Glucose (74-106) mg/dL Calcium (8.5-10.1) mg/dL Total Bilirubin (0.2-1.0) mg/dL AST (15-37) U/L ALT (12-78) U/L Alkaline Phosphatase (46-116) U/L Troponin I (0.000-0.056) ng/mL Total Protein (6.4-8.2) g/dL Albumin (3.4-5.0) g/dL Globulin (2.3-3.5) g/dL Albumin/Globulin Ratio (1.2-2.2) TSH, Ultra Sensitive 2.399 (0.358-3.740) uIU/mL Meds: Medications Generic Name Dose Route Start Last Admin Trade Name [place] PRN Reason Stop Dose Admin Aspirin 81 mg 07/27/17 09:00 07/27/17 08:22 Halfprin PO 81 mg DAILY MELISSA Administration Diltiazem HCl 120 mg 07/27/17 21:00 07/27/17 20:43 Cardizem Cd PO 120 mg BID MELISSA Administration Doxazosin Mesylate 4 mg 07/27/17 09:00 07/27/17 08:24 Cardura PO Not Given DAILY MELISSA Enoxaparin Sodium 30 mg 07/27/17 21:00 07/27/17 20:42 Lovenox SUBCUT 30 mg BEDTIME MELISSA Administration Glipizide 5 mg 07/26/17 19:30 07/27/17 16:25 Glucotrol PO 5 mg BIDAC MELISSA Administration Metformin HCl 500 mg 07/27/17 17:45 07/27/17 17:39 Glucophage Xr PO 500 mg BIDMEALS MELISSA Administration Tamsulosin HCl 0.4 mg 07/27/17 21:00 07/27/17 20:43 Flomax PO 0.4 mg BEDTIME MELISSA Administration Discontinued Medications Generic Name Dose Route Start Last Admin Trade Name Freq PRN Reason Stop Dose Admin Adenosine 6 mg 07/26/17 17:38 07/26/17 17:48 Adenocard IVPUSH 07/26/17 17:39 6 mg NOW ONE Administration Adenosine 12 mg 07/26/17 17:58 07/26/17 18:11 Adenocard IVPUSH 07/26/17 17:59 12 mg NOW ONE Administration Adenosine Confirm 07/26/17 18:01 07/26/17 19:29 Adenocard Administered 07/26/17 18:02 Not Given Dose 12 mg .ROUTE .STK-MED ONE Diltiazem HCl 10 mg 07/26/17 18:09 07/26/17 18:23 Diltiazem IVPUSH 07/26/17 18:10 10 mg ONETIME ONE Administration Enoxaparin Sodium 30 mg 07/26/17 22:30 07/26/17 22:45 Lovenox SUBCUT 30 mg DAILY MELISSA Administration Diltiazem HCl 100 mg/ Sodium 100 mls @ 5 mls/hr 07/26/17 18:15 07/27/17 11:03 Chloride IV 5 mg/hr TITRATE MELISSA 5 mls/hr Protocol Titration 5 MG/HR Sodium Chloride 1,000 mls @ 291 mls/hr 07/26/17 19:30 07/26/17 20:36 Sodium Chloride 3% IV 100 mls/hr ASDIRECTED MELISSA Administration Sodium Chloride 500 mls @ 50 mls/hr 07/26/17 21:00 07/27/17 06:02 Sodium Chloride 3% IV 50 mls/hr ASDIRECTED MELISSA Administration Sodium Chloride 200 mls @ 999 mls/hr 07/27/17 05:47 07/27/17 05:47 Normal Saline IV 999 mls/hr ASDIRECTED MELISSA Administration Sodium Chloride 200 mls @ 999 mls/hr 07/27/17 06:45 Normal Saline IV ASDIRECTED MELISSA Sodium Chloride 1,000 mls @ 100 mls/hr 07/27/17 08:00 07/27/17 10:33 Normal Saline IV 100 mls/hr ASDIRECTED MELISSA Administration Sodium Chloride 1,000 mls @ 200 mls/hr 07/27/17 11:00 Normal Saline IV ASDIRECTED MELISSA Sodium Chloride 1,000 mls @ 60 mls/hr 07/27/17 13:15 Normal Saline IV ASDIRECTED MELISSA Propofol Confirm 07/27/17 12:39 Diprivan 20 Ml Administered 07/27/17 12:40 Dose 200 mg .ROUTE .STK-MED ONE Sodium Polystyrene Sulfonate 15 gm 07/27/17 00:01 07/27/17 00:19 Kayexalate PO 07/27/17 00:02 15 gm ONETIME ONE Administration Sodium Polystyrene Sulfonate Confirm 07/27/17 04:55 07/27/17 04:47 Kayexalate Administered 07/27/17 04:56 15 gm Dose Administration 15 gm .ROUTE .STK-MED ONE Sodium Polystyrene Sulfonate 0 gm 07/27/17 04:47 07/27/17 04:47 Kayexalate PO 15 gm Q6H MELISSA Administration - Re-Assessments/Exams Free Text/Narrative Re-Assessment/Exam: 07/26/17 18:15 adenogard 6 mg was given iv push which slowed him slightly. he was then given 12 mg and he slowed and he was clearly in a fib flutter. 07/26/17 18:36 cardizem drip was started and he was bolused with 10 mg. He was found to have a na of 110. He has not experienced any chest pain Departure - Departure Time of Disposition: 06:00 Disposition: Admitted As Inpatient 67 Condition: Fair Clinical Impression: Atrial fibrillation and flutter, Anemia, Diabetes type 2, controlled, Hyponatremia
[2017-07-26] MEDS ORDERED: Adenosine 6 MG/2 ML SDV ONE (18:01)
[2017-07-26] MEDS ORDERED: Diltiazem 25 MG/5 ML SDV IVPUSH ONE (18:09)
[2017-07-26] MEDS ORDERED: Diltiazem 100 MG in Sodium Chloride 0.9% 100 ML IV SCH (18:15)
--- NOTE | 2017-07-26 19:34 | PCM.HP ---
H&P History of Present Illness - General Date of Service: 07/26/17 Admit Problem/Dx: Admission Diagnosis/Problem Admission Diagnosis/Problem Hyponatremia - History of Present Illness Initial Comments - Free Text/Narative: He was in the office today stating he had diarrhea for 3-4 days and not having a lot of urine at the present time. He felt it was secondary to dehydration. He is a known DM II and blood sugars have to good control. He went home then called me a said he was unable to pass urine and felt he was obstructed. I told him to come in for a bladder scan. He then felt weaker and called the EMS and was brought to the ER and had a heart rate of 145. Adenosine was given and the heart rate dropped and then was in a atrial fib flutter pattern. Presently he is on a cardizem drip. The sodium was reported as 110 and his is being repeated. Severity: Moderate - Related Data Allergies/Adverse Reactions: Allergies Allergy/AdvReac Type Severity Reaction Status Date / Time No Known Allergies Allergy Verified 02/21/17 09:44 Home Medications: Home Meds glipiZIDE [Glipizide] 5 mg PO BID 01/24/17 [History] metFORMIN [Glucophage] 500 mg PO BIDMEALS 01/24/17 [History] Aspirin 81 mg PO DAILY tab.chew 01/27/17 [Rx] Doxazosin [Cardura] 4 mg PO DAILY tablet 01/27/17 [Rx] Past Medical History Cardiovascular History: Reports: Hypertension Musculoskeletal History: Reports: Arthritis Endocrine/Metabolic History: Reports: Diabetes, Type II Oncologic (Cancer) History: Reports: Basal Cell Carcinoma Dermatologic History: Reports: Other (See Below) Other Dermatologic History: foot ulcer resolved - Infectious Disease History Infectious Disease History: Reports: Chicken Pox, Measles, Mumps - Past Surgical History HEENT Surgical History: Reports: Adenoidectomy, Tonsillectomy Social & Family History - Family History Family Medical History: Noncontributory - Tobacco Use Smoking Status *Q: Never Smoker Used Tobacco, but Quit: Yes Month Tobacco Last Used: 30 years ago Second Hand Smoke Exposure: No - Caffeine Use Caffeine Use: Reports: Coffee - Alcohol Use Days Per Week of Alcohol Use: 5 Number of Drinks Per Day: 1 Total Drinks Per Week: 5 - Recreational Drug Use Recreational Drug Use: No H&P Review of Systems - Review of Systems: Review Of Systems: See Below General: Reports: Weakness HEENT: Reports: No Symptoms Pulmonary: Reports: No Symptoms Cardiovascular: Reports: Palpitations, Dyspnea on Exertion, Lightheadedness Gastrointestinal: Reports: No Symptoms Genitourinary: Reports: No Symptoms Musculoskeletal: Reports: No Symptoms Skin: Reports: No Symptoms Psychiatric: Reports: No Symptoms Neurological: Reports: Weakness Exam - Exam Exam: See Below - Vital Signs Vital Signs: Last Vital Signs Temp 95.6 F 07/26/17 17:32 Pulse 115 H 07/26/17 18:32 Resp 19 07/26/17 17:32 BP 103/64 07/26/17 18:32 Pulse Ox 97 07/26/17 17:32 Weight: 214 lb - Exam General: Alert, Oriented, 4 HEENT: PERRLA, Hearing Intact, Mucosa Moist & [place], Nares Patent, Normal Nasal Septum, Posterior Pharynx Clear, Conjunctiva Clear, EOMI, EACs Clear, TMs Clear Neck: Supple, Trachea Midline, 2 Lungs: Clear to Auscultation, Normal Respiratory Effort Cardiovascular: Irregular Rhythm GI/Abdominal Exam: Normal Bowel Sounds, Soft, Non-Tender, No Organomegaly, No Distention, No Abnormal Bruit, No Mass, Pelvis Stable Extremities: Normal Range of Motion, Non-Tender, Normal Capillary Refill, Pedal Edema Peripheral Pulses: 1+: Radial (L), Radial (R) Skin: Warm, Dry, Intact DTR: 1+: Bicep (L), Bicep (R) Psychiatric: Alert, Normal Affect, Normal Mood - Patient Data Lab Results Last 24 hrs: Laboratory Results - last 24 hr 07/26/17 07/26/17 07/26/17 Range/Units 17:39 17:39 17:39 WBC 8.9 (4.5-11.0) K/uL RBC 3.50 L (4.30-5.90) M/uL Hgb 11.1 L (12.0-15.0) g/dL Hct 31.7 L (40.0-54.0) % MCV 91 (80-98) fL MCH 32 H (27-31) pg MCHC 35 (32-36) % Plt Count 282 (150-400) K/uL Neut % (Auto) 77 H (36-66) % Lymph % (Auto) 10 L (24-44) % [place] % (Auto) 12 H (2-6) % Eos % (Auto) 1 L (2-4) % Baso % (Auto) 0 (0-1) % Sodium 110 L* (140-148) mmol/L Potassium 5.5 H (3.6-5.2) mmol/L Chloride 77 L (100-108) mmol/L Carbon Dioxide 19 L (21-32) mmol/L Anion Gap 19.5 H (5.0-14.0) mmol/L BUN 23 H D (7-18) mg/dL Creatinine 1.0 (0.8-1.3) mg/dL Est Cr Clr Drug Dosing 66.50 mL/min Estimated GFR (MDRD) > 60 (>60) Glucose 155 H (74-106) mg/dL Calcium 7.8 L (8.5-10.1) mg/dL Total Bilirubin 0.6 (0.2-1.0) mg/dL AST 27 (15-37) U/L ALT 51 (12-78) U/L Alkaline Phosphatase 70 (46-116) U/L Troponin I < 0.017 (0.000-0.056) ng/mL Total Protein 6.0 L (6.4-8.2) g/dL Albumin 2.8 L (3.4-5.0) g/dL Globulin 3.2 (2.3-3.5) g/dL Albumin/Globulin Ratio 0.9 L (1.2-2.2) TSH, Ultra Sensitive (0.358-3.740) uIU/mL 07/26/17 Range/Units 17:39 WBC (4.5-11.0) K/uL RBC (4.30-5.90) M/uL Hgb (12.0-15.0) g/dL Hct (40.0-54.0) % MCV (80-98) fL MCH (27-31) pg MCHC (32-36) % Plt Count (150-400) K/uL Neut % (Auto) (36-66) % Lymph % (Auto) (24-44) % [place] % (Auto) (2-6) % Eos % (Auto) (2-4) % Baso % (Auto) (0-1) % Sodium (140-148) mmol/L Potassium (3.6-5.2) mmol/L Chloride (100-108) mmol/L Carbon Dioxide (21-32) mmol/L Anion Gap (5.0-14.0) mmol/L BUN (7-18) mg/dL Creatinine (0.8-1.3) mg/dL Est Cr Clr Drug Dosing mL/min Estimated GFR (MDRD) (>60) Glucose (74-106) mg/dL Calcium (8.5-10.1) mg/dL Total Bilirubin (0.2-1.0) mg/dL AST (15-37) U/L ALT (12-78) U/L Alkaline Phosphatase (46-116) U/L Troponin I (0.000-0.056) ng/mL Total Protein (6.4-8.2) g/dL Albumin (3.4-5.0) g/dL Globulin (2.3-3.5) g/dL Albumin/Globulin Ratio (1.2-2.2) TSH, Ultra Sensitive 2.399 (0.358-3.740) uIU/mL Result Diagrams: 07/27/17 04:00 07/27/17 16:00 *Q Meaningful Use (ADM) - VTE *Q VTE Criteria *Q: - Stroke *Q Stroke Criteria *Q: - AMI *Q AMI Criteria *Q: Problem List Initiated/Reviewed/Updated: Yes Orders Last 24hrs: Active Orders 24 hr Category Date Time Status Patient Status [ADT] Routine ADT 07/26/17 19:10 Active Cardiac Monitoring [RC] CONTINUOUS Care 07/26/17 19:13 Active EKG Documentation Completion [RC] ASDIRECTED Care 07/26/17 17:37 Active Insert Neely Catheter [Insert Urinary Catheter] [OM.PC] Care 07/26/17 19:30 Ordered Q24H Intake and Output [RC] QSHIFT Care 07/26/17 19:13 Active Oxygen Therapy [RC] PRN Care 07/26/17 19:10 Active Up to Chair [RC] QID Care 07/26/17 19:10 Active Urinary Catheter Assessment [RC] ASDIRECTED Care 07/26/17 19:21 Active VTE/DVT Education [RC] Per Unit Routine Care 07/26/17 19:10 Active Vital Signs [RC] Q4H Care 07/26/17 19:10 Active Regular Diet [DIET] Diet 07/27/17 Breakfast Active Chest 1V Frontal [CR] Stat Exams 07/26/17 18:34 Taken BASIC METABOLIC PANEL,BMP [CHEM] Q2H Lab 07/26/17 20:30 Ordered BASIC METABOLIC PANEL,BMP [CHEM] Q2H Lab 07/26/17 22:30 Ordered BASIC METABOLIC PANEL,BMP [CHEM] Routine Lab 07/26/17 19:10 Ordered UA W/MICROSCOPIC [URIN] Urgent Lab 07/26/17 19:00 Ordered Aspirin Med 07/27/17 09:00 Ordered 81 mg PO DAILY Diltiazem [Cardizem] 100 mg Med 07/26/17 18:15 Active Sodium Chloride 0.9% [Normal Saline] 100 ml IV TITRATE Doxazosin [Cardura] Med 07/27/17 09:00 Ordered 4 mg PO DAILY Sodium Chloride 3% 1,000 ml Med 07/26/17 19:30 Active IV ASDIRECTED glipiZIDE [Glucotrol] Med 07/26/17 21:00 Ordered 5 mg PO BID Resuscitation Status Routine Resus Stat 07/26/17 19:10 Ordered EKG 12 Lead [EK] Routine Ther 07/26/17 17:37 Ordered Medication Orders Aspirin (Aspirin) 81 mg PO DAILY MELISSA Doxazosin Mesylate (Cardura) 4 mg PO DAILY MELISSA Glipizide (Glucotrol) 5 mg PO BID MELISSA Diltiazem HCl 100 mg/ Sodium (Chloride) 100 mls @ 5 mls/hr IV TITRATE MELISSA; 5 MG /HR PRN Reason: Protocol Last Admin: 07/26/17 18:32 Dose: 5 mg/hr, 5 mls/hr Sodium Chloride (Sodium Chloride 3%) 1,000 mls @ 291 mls/hr IV ASDIRECTED MELISSA Assessment/Plan Comment:: Assessment/plan: Tachycardia: Atrial fib flutter. Will continue with the cardizem drip. #2. Hyponatremia: Sodium level is being repeated and if the original value is correct will give 3% hypertonic saline until sodium >125. #3. DM II. Will monitor the BS's and treat. #4. Bladder dysfunction: 610 cc of urine was in the bladder then he passed 200 cc. A neely cath will be place.
[2017-07-26] MEDS: glipiZIDE 5 MG Tab PO SCH (20:53)
[2017-07-26] MEDS: Sodium Chloride 3% 500 ML IV SCH (20:55)
[2017-07-26] MEDS ORDERED: Enoxaparin 30 MG/0.3 ML Syringe SUBCUT SCH (22:30)
[2017-07-27] MEDS ORDERED: Sodium Polystyrene Sulfonate 15 GM/60 ML Susp 60 ML Bot PO ONE (00:01)
[2017-07-27] MEDS ORDERED: Sodium Polystyrene Sulfonate 15 GM/60 ML Susp 60 ML Bot PO SCH ×2 (04:47→12:00)
[2017-07-27] MEDS ORDERED: Sodium Polystyrene Sulfonate 15 GM/60 ML Susp 60 ML Bot ONE (04:55)
[2017-07-27] MEDS ORDERED: Sodium Chloride 0.9% 200 ML IV SCH ×2 (05:47→06:45)
[2017-07-27] MEDS: Sodium Chloride 3% 500 ML IV SCH (06:02)
[2017-07-27] MEDS ORDERED: Sodium Chloride 0.9% 1,000 ML IV SCH ×3 (08:00→13:15)
[2017-07-27] MEDS: glipiZIDE 5 MG Tab PO SCH ×2 (08:21→16:25)
[2017-07-27] MEDS: Aspirin 81 MG Tab.EC PO SCH (08:22)
[2017-07-27] MEDS: Doxazosin 4 MG Tab PO SCH (08:24)
--- NOTE | 2017-07-27 08:40 | CR ---
Chest 1V Frontal HISTORY: rapid heart rate COMPARISON: 01/26/2017 FINDINGS: Portable chest, 1844 hours. Lungs appear clear and normally aerated. There is mild linear atelectasis or scarring at the lung bas es. Generalized cardiomegaly is noted. Heart size appears increased compared to the prior exam. No va scular redistribution or pleural fluid can be seen. Bony structures and soft tissues are unremarkable . IMPRESSION: Cardiomegaly without evidence for decompensation. Probable mild linear atelectasis or scarring is not ed at the lung bases bilaterally.
[2017-07-27] MEDS ORDERED: Propofol 200 MG/20 ML SDV ONE (12:39)
[2017-07-27] MEDS: metFORMIN 500 MG Tab.ER PO SCH (17:39)
--- NOTE | 2017-07-27 19:53 | PCM.PN ---
- General Info Date of Service: 07/27/17 Subjective Update: We are now s/p cardioversion and feeling good. His BP is 130's systolic and heart rate in the 70-80 range. He has no complaints. - Review of Systems General: Reports: No Symptoms HEENT: Reports: No Symptoms Pulmonary: Reports: No Symptoms Cardiovascular: Reports: No Symptoms Gastrointestinal: Reports: No Symptoms Genitourinary: Reports: No Symptoms Musculoskeletal: Reports: No Symptoms Skin: Reports: No Symptoms Neurological: Reports: No Symptoms Psychiatric: Reports: No Symptoms - Patient Data Vitals - Most Recent: Last Vital Signs Temp 98.3 F 07/27/17 08:00 Pulse 78 07/27/17 17:46 Resp 23 H 07/27/17 17:46 BP 132/61 07/27/17 17:46 Pulse Ox 99 07/27/17 17:46 Weight - Most Recent: 200 lb 9.613 oz I&O - Last 24 Hours: Intake & Output 07/27/17 07/27/17 07/27/17 06:59 14:59 22:59 Intake Total 1161 1427 Output Total 175 200 200 Balance 986 -200 1227 Lab Results Last 24 Hours: Laboratory Results - last 24 hr 07/26/17 07/26/17 07/26/17 Range/Units 19:42 21:33 23:30 WBC (4.5-11.0) K/uL RBC (4.30-5.90) M/uL Hgb (12.0-15.0) g/dL Hct (40.0-54.0) % MCV (80-98) fL MCH (27-31) pg MCHC (32-36) % Plt Count (150-400) K/uL Neut % (Auto) (36-66) % Lymph % (Auto) (24-44) % [place] % (Auto) (2-6) % Eos % (Auto) (2-4) % Baso % (Auto) (0-1) % Sodium 112 L* 114 L* (140-148) mmol/L Potassium 5.7 H 5.8 H (3.6-5.2) mmol/L Chloride 82 L 83 L (100-108) mmol/L Carbon Dioxide 20 L 22 (21-32) mmol/L Anion Gap 15.7 H 14.8 H (5.0-14.0) mmol/L BUN 24 H 24 H (7-18) mg/dL Creatinine 0.9 1.0 (0.8-1.3) mg/dL Est Cr Clr Drug Dosing 73.89 66.50 mL/min Estimated GFR (MDRD) > 60 > 60 (>60) Glucose 149 H 145 H (74-106) mg/dL Calcium 8.0 L 7.9 L (8.5-10.1) mg/dL Creatine Kinase (39-308) U/L Troponin I (0.000-0.056) ng/mL Urine Color Yellow Urine Appearance Clear Urine pH 5.0 (4.5-8.0) Ur Specific [place] 1.015 (1.008-1.030) Urine Protein Negative (NEGATIVE) mg/dL Urine Glucose (UA) Normal (NEGATIVE) mg/dL Urine Ketones 15 H (NEGATIVE) mg/dL Urine Occult Blood Negative (NEGATIVE) Urine Nitrite Negative (NEGAITVE) Urine Bilirubin Negative (NEGATIVE) Urine Urobilinogen Normal (NORMAL) mg/dL Ur Leukocyte Esterase Negative (NEGATIVE) Urine RBC 0-5 (0-5) Urine WBC 0-5 (0-5) Ur Epithelial Cells Not seen Amorphous Sediment Not seen Urine Bacteria Not seen Urine Mucus Not seen 07/27/17 07/27/17 07/27/17 Range/Units 04:00 04:00 04:00 WBC 9.8 (4.5-11.0) K/uL RBC 3.52 L (4.30-5.90) M/uL Hgb 11.3 L (12.0-15.0) g/dL Hct 31.6 L (40.0-54.0) % MCV 90 (80-98) fL MCH 32 H (27-31) pg MCHC 36 (32-36) % Plt Count 301 (150-400) K/uL Neut % (Auto) 78 H (36-66) % Lymph % (Auto) 9 L (24-44) % [place] % (Auto) 13 H (2-6) % Eos % (Auto) 0 L (2-4) % Baso % (Auto) 0 (0-1) % Sodium 116 L* (140-148) mmol/L Potassium 5.6 H (3.6-5.2) mmol/L Chloride 86 L (100-108) mmol/L Carbon Dioxide 19 L (21-32) mmol/L Anion Gap 16.6 H (5.0-14.0) mmol/L BUN 25 H (7-18) mg/dL Creatinine 1.0 (0.8-1.3) mg/dL Est Cr Clr Drug Dosing 66.50 mL/min Estimated GFR (MDRD) > 60 (>60) Glucose 136 H (74-106) mg/dL Calcium 8.0 L (8.5-10.1) mg/dL Creatine Kinase 360 H (39-308) U/L Troponin I < 0.017 (0.000-0.056) ng/mL Urine Color Urine Appearance Urine pH (4.5-8.0) Ur Specific [place] (1.008-1.030) Urine Protein (NEGATIVE) mg/dL Urine Glucose (UA) (NEGATIVE) mg/dL Urine Ketones (NEGATIVE) mg/dL Urine Occult Blood (NEGATIVE) Urine Nitrite (NEGAITVE) Urine Bilirubin (NEGATIVE) Urine Urobilinogen (NORMAL) mg/dL Ur Leukocyte Esterase (NEGATIVE) Urine RBC (0-5) Urine WBC (0-5) Ur Epithelial Cells Amorphous Sediment Urine Bacteria Urine Mucus 07/27/17 07/27/17 07/27/17 Range/Units 07:55 12:49 16:00 WBC (4.5-11.0) K/uL RBC (4.30-5.90) M/uL Hgb (12.0-15.0) g/dL Hct (40.0-54.0) % MCV (80-98) fL MCH (27-31) pg MCHC (32-36) % Plt Count (150-400) K/uL Neut % (Auto) (36-66) % Lymph % (Auto) (24-44) % [place] % (Auto) (2-6) % Eos % (Auto) (2-4) % Baso % (Auto) (0-1) % Sodium 121 L 123 L 122 L (140-148) mmol/L Potassium 5.2 4.7 5.0 (3.6-5.2) mmol/L Chloride 88 L 92 L 91 L (100-108) mmol/L Carbon Dioxide 22 20 L 23 (21-32) mmol/L Anion Gap 16.2 H 15.7 H 13.0 (5.0-14.0) mmol/L BUN 25 H 26 H 29 H (7-18) mg/dL Creatinine 1.0 1.0 1.3 (0.8-1.3) mg/dL Est Cr Clr Drug Dosing 66.50 66.75 51.34 mL/min Estimated GFR (MDRD) > 60 > 60 55 L (>60) Glucose 135 H 124 H 177 H (74-106) mg/dL Calcium 7.9 L 7.7 L 7.9 L (8.5-10.1) mg/dL Creatine Kinase (39-308) U/L Troponin I (0.000-0.056) ng/mL Urine Color Urine Appearance Urine pH (4.5-8.0) Ur Specific [place] (1.008-1.030) Urine Protein (NEGATIVE) mg/dL Urine Glucose (UA) (NEGATIVE) mg/dL Urine Ketones (NEGATIVE) mg/dL Urine Occult Blood (NEGATIVE) Urine Nitrite (NEGAITVE) Urine Bilirubin (NEGATIVE) Urine Urobilinogen (NORMAL) mg/dL Ur Leukocyte Esterase (NEGATIVE) Urine RBC (0-5) Urine WBC (0-5) Ur Epithelial Cells Amorphous Sediment Urine Bacteria Urine Mucus Med Orders - Current: Current Medications Aspirin (Halfprin) 81 mg PO DAILY [facility] Last Admin: 07/27/17 08:22 Dose: 81 mg Doxazosin Mesylate (Cardura) 4 mg PO DAILY [facility] Last Admin: 07/27/17 08:24 Dose: Not Given Enoxaparin Sodium (Lovenox) 30 mg SUBCUT BEDTIME [facility] Glipizide (Glucotrol) 5 mg PO BIDAC [facility] Last Admin: 07/27/17 16:25 Dose: 5 mg Diltiazem HCl 100 mg/ Sodium (Chloride) 100 mls @ 5 mls/hr IV TITRATE MELISSA; 5 MG /HR PRN Reason: Protocol Last Titration: 07/27/17 11:03 Dose: 5 mg/hr, 5 mls/hr Sodium Chloride (Normal Saline) 1,000 mls @ 60 mls/hr IV ASDIRECTED [facility] Metformin HCl (Glucophage Xr) 500 mg PO BIDMEALS [facility] Last Admin: 07/27/17 17:39 Dose: 500 mg Discontinued Medications Adenosine (Adenocard) 6 mg IVPUSH NOW ONE Stop: 07/26/17 17:39 Last Admin: 07/26/17 17:48 Dose: 6 mg Adenosine (Adenocard) 12 mg IVPUSH NOW ONE Stop: 07/26/17 17:59 Last Admin: 07/26/17 18:11 Dose: 12 mg Adenosine (Adenocard) Confirm Administered Dose 12 mg .ROUTE .STK-MED ONE Stop: 07/26/17 18:02 Last Admin: 07/26/17 19:29 Dose: Not Given Diltiazem HCl (Diltiazem) 10 mg IVPUSH ONETIME ONE Stop: 07/26/17 18:10 Last Admin: 07/26/17 18:23 Dose: 10 mg Enoxaparin Sodium (Lovenox) 30 mg SUBCUT DAILY [facility] Last Admin: 07/26/17 22:45 Dose: 30 mg Sodium Chloride (Sodium Chloride 3%) 1,000 mls @ 291 mls/hr IV ASDIRECTED [facility] Last Admin: 07/26/17 20:36 Dose: 100 mls/hr Sodium Chloride (Sodium Chloride 3%) 500 mls @ 50 mls/hr IV ASDIRECTED [facility] Last Admin: 07/27/17 06:02 Dose: 50 mls/hr Sodium Chloride (Normal Saline) 200 mls @ 999 mls/hr IV ASDIRECTED [facility] Last Admin: 07/27/17 05:47 Dose: 999 mls/hr Sodium Chloride (Normal Saline) 200 mls @ 999 mls/hr IV ASDIRECTED MELISSA Sodium Chloride (Normal Saline) 1,000 mls @ 100 mls/hr IV ASDIRECTED [facility] Last Admin: 07/27/17 10:33 Dose: 100 mls/hr Sodium Chloride (Normal Saline) 1,000 mls @ 200 mls/hr IV ASDIRECTED MELISSA Propofol (Diprivan 20 Ml) Confirm Administered Dose 200 mg .ROUTE .STK-MED ONE Stop: 07/27/17 12:40 Sodium Polystyrene Sulfonate (Kayexalate) 15 gm PO ONETIME ONE Stop: 07/27/17 00:02 Last Admin: 07/27/17 00:19 Dose: 15 gm Sodium Polystyrene Sulfonate (Kayexalate) Confirm Administered Dose 15 gm .ROUTE .STK-MED ONE Stop: 07/27/17 04:56 Last Admin: 07/27/17 04:47 Dose: 15 gm Sodium Polystyrene Sulfonate (Kayexalate) 0 gm PO Q6H [facility] Last Admin: 07/27/17 04:47 Dose: 15 gm - Exam General: Alert HEENT: Pupils Equal, Pupils Reactive, EOMI, Mucous Membr. Moist/[place] Neck: Supple Lungs: Clear to Auscultation, Normal Respiratory Effort Cardiovascular: Regular Rate, Regular Rhythm Back Exam: Normal Inspection, Full Range of Motion Extremities: Normal Inspection - Problem List Review Problem List Initiated/Reviewed/Updated: Yes - My Orders Last 24 Hours: My Active Orders 07/26/17 19:21 Urinary Catheter Assessment [RC] ASDIRECTED 07/26/17 19:30 Insert Godinez Catheter [Insert Urinary Catheter] [OM.PC] Q24H glipiZIDE [Glucotrol] 5 mg PO BIDAC 07/26/17 20:05 Blood Glucose Check, Bedside [RC] QIDACANDBED 07/26/17 22:07 SCD [Sequential Compression Device] [OM.PC] Routine 07/27/17 09:00 Aspirin [Halfprin] 81 mg PO DAILY Doxazosin [Cardura] 4 mg PO DAILY 07/27/17 13:15 Sodium Chloride 0.9% [Normal Saline] 1,000 ml IV ASDIRECTED 07/27/17 17:45 metFORMIN [Glucophage XR] 500 mg PO BIDMEALS 07/27/17 20:00 BASIC METABOLIC PANEL,BMP [CHEM] Q4H 07/27/17 21:00 Enoxaparin [Lovenox] 30 mg SUBCUT BEDTIME 07/27/17 Breakfast NPO [Nothing Per Oral Diet] [DIET] 07/27/17 Dinner Consistent Carbohydrate Diet [DIET] - Plan Plan:: Assessment/plan: Tachycardia: Atrial fib flutter. resolved not in NSR. #2. Hyponatremia: Sodium level is 122 and blood work pending tomorrow. #3. DM II. Will monitor the BS's and treat. Will restart meds. #4. Bladder dysfunction: Will dc the cath in the morning. He wants to keep it in tonight. Will begin Flowmax
[2017-07-27] MEDS: Enoxaparin 30 MG/0.3 ML Syringe SUBCUT SCH (20:42)
[2017-07-27] MEDS: Tamsulosin 0.4 MG Cap.ER PO SCH (20:43)
[2017-07-27] MEDS: Diltiazem 120 MG Cap.CD PO SCH (20:43)
[2017-07-28] MEDS: glipiZIDE 5 MG Tab PO SCH ×2 (08:36→18:42)
[2017-07-28] MEDS: Diltiazem 120 MG Cap.CD PO SCH ×2 (08:37→20:38)
[2017-07-28] MEDS: metFORMIN 500 MG Tab.ER PO SCH ×2 (08:37→18:43)
[2017-07-28] MEDS: Aspirin 81 MG Tab.EC PO SCH (08:38)
[2017-07-28] MEDS: Doxazosin 4 MG Tab PO SCH (08:38)
--- NOTE | 2017-07-28 09:03 | PROC ---
DATE OF PROCEDURE: 07/27/2017 INDICATIONS: Elbert is a 71-year-old male, who came in with a rapid heart rate of 140, was found to have a sodium of 110, and was placed in the ICU. He was given adenosine at first and then started on Cardizem drip. We corrected his sodium from 110 up to over 120. His heart rate was running in the 130s to 140s and blood pressure down in the 80s systolic. We felt that cardioversion was indicated. DESCRIPTION OF PROCEDURE: The cardioversion was assisted by help of the nurse smoking tobacco packing machine hand. We used 70 mg of propofol, and when he had adequate anesthesia, we delivered 200 joules, and his heart rate came down to the 70s, sinus rhythm with blood pressure 63/37, but this was just done, and we will be watching this closely. PRE-PROCEDURE DIAGNOSES: Tachycardia, hypotension. POSTPROCEDURE DIAGNOSIS: Restored heart rhythm to normal sinus rhythm. Rahul Estrada MD /[id number]
[2017-07-28] MEDS: Enoxaparin 30 MG/0.3 ML Syringe SUBCUT SCH (20:39)
[2017-07-28] MEDS: Tamsulosin 0.4 MG Cap.ER PO SCH (20:39)
--- NOTE | 2017-07-28 23:18 | PCM.PN ---
- General Info Date of Service: 07/28/17 Admission Dx/Problem (Free Text): Elbert is feeling much better but still concern is unable to pass water. Functional Status: Reports: Pain Controlled - Review of Systems General: Reports: Weakness HEENT: Reports: No Symptoms Pulmonary: Reports: No Symptoms Cardiovascular: Reports: No Symptoms Gastrointestinal: Reports: No Symptoms Genitourinary: Reports: No Symptoms Musculoskeletal: Reports: No Symptoms Skin: Reports: No Symptoms Neurological: Reports: No Symptoms Psychiatric: Reports: No Symptoms - Patient Data Vitals - Most Recent: Last Vital Signs Temp 95.4 F 07/28/17 19:25 Pulse 73 07/28/17 20:38 Resp 18 07/28/17 19:25 BP 126/72 07/28/17 20:38 Pulse Ox 96 07/28/17 19:25 Weight - Most Recent: 214 lb I&O - Last 24 Hours: Intake & Output 07/28/17 07/28/17 07/29/17 14:59 22:59 06:59 Intake Total 800 240 Output Total 300 Balance 800 -60 Lab Results Last 24 Hours: Laboratory Results - last 24 hr 07/28/17 07/28/17 Range/Units 05:14 05:14 WBC 12.7 H (4.5-11.0) K/uL RBC 3.36 L (4.30-5.90) M/uL Hgb 10.7 L (12.0-15.0) g/dL Hct 31.0 L (40.0-54.0) % MCV 92 (80-98) fL MCH 32 H (27-31) pg MCHC 35 (32-36) % Plt Count 342 (150-400) K/uL Neut % (Auto) 75 H (36-66) % Lymph % (Auto) 11 L (24-44) % [place] % (Auto) 13 H (2-6) % Eos % (Auto) 1 L (2-4) % Baso % (Auto) 0 (0-1) % Sodium 125 L (140-148) mmol/L Potassium 4.6 (3.6-5.2) mmol/L Chloride 92 L (100-108) mmol/L Carbon Dioxide 23 (21-32) mmol/L Anion Gap 14.6 H (5.0-14.0) mmol/L BUN 34 H (7-18) mg/dL Creatinine 1.2 (0.8-1.3) mg/dL Est Cr Clr Drug Dosing 55.62 mL/min Estimated GFR (MDRD) 60 (>60) Glucose 126 H (74-106) mg/dL Calcium 8.0 L (8.5-10.1) mg/dL Med Orders - Current: Current Medications Aspirin (Halfprin) 81 mg PO DAILY [facility] Last Admin: 07/28/17 08:38 Dose: 81 mg Diltiazem HCl (Cardizem Cd) 120 mg PO BID [facility] Last Admin: 07/28/17 20:38 Dose: 120 mg Doxazosin Mesylate (Cardura) 4 mg PO DAILY [facility] Last Admin: 07/28/17 08:38 Dose: 4 mg Enoxaparin Sodium (Lovenox) 30 mg SUBCUT BEDTIME [facility] Last Admin: 07/28/17 20:39 Dose: 30 mg Glipizide (Glucotrol) 5 mg PO BIDAC [facility] Last Admin: 07/28/17 18:42 Dose: 5 mg Metformin HCl (Glucophage Xr) 500 mg PO BIDMEALS [facility] Last Admin: 07/28/17 18:43 Dose: 500 mg Tamsulosin HCl (Flomax) 0.4 mg PO BEDTIME [facility] Last Admin: 07/28/17 20:39 Dose: 0.4 mg Discontinued Medications Adenosine (Adenocard) 6 mg IVPUSH NOW ONE Stop: 07/26/17 17:39 Last Admin: 07/26/17 17:48 Dose: 6 mg Adenosine (Adenocard) 12 mg IVPUSH NOW ONE Stop: 07/26/17 17:59 Last Admin: 07/26/17 18:11 Dose: 12 mg Adenosine (Adenocard) Confirm Administered Dose 12 mg .ROUTE .STK-MED ONE Stop: 07/26/17 18:02 Last Admin: 07/26/17 19:29 Dose: Not Given Diltiazem HCl (Diltiazem) 10 mg IVPUSH ONETIME ONE Stop: 07/26/17 18:10 Last Admin: 07/26/17 18:23 Dose: 10 mg Enoxaparin Sodium (Lovenox) 30 mg SUBCUT DAILY [facility] Last Admin: 07/26/17 22:45 Dose: 30 mg Diltiazem HCl 100 mg/ Sodium (Chloride) 100 mls @ 5 mls/hr IV TITRATE MELISSA; 5 MG /HR PRN Reason: Protocol Last Titration: 07/27/17 11:03 Dose: 5 mg/hr, 5 mls/hr Sodium Chloride (Sodium Chloride 3%) 1,000 mls @ 291 mls/hr IV ASDIRECTED [facility] Last Admin: 07/26/17 20:36 Dose: 100 mls/hr Sodium Chloride (Sodium Chloride 3%) 500 mls @ 50 mls/hr IV ASDIRECTED [facility] Last Admin: 07/27/17 06:02 Dose: 50 mls/hr Sodium Chloride (Normal Saline) 200 mls @ 999 mls/hr IV ASDIRECTED [facility] Last Admin: 07/27/17 05:47 Dose: 999 mls/hr Sodium Chloride (Normal Saline) 200 mls @ 999 mls/hr IV ASDIRECTED [facility]IS[facility] Sodium Chloride (Normal Saline) 1,000 mls @ 100 mls/hr IV ASDIRECTED [facility] Last Admin: 07/27/17 10:33 Dose: 100 mls/hr Sodium Chloride (Normal Saline) 1,000 mls @ 200 mls/hr IV ASDIRECTED MELISSA Sodium Chloride (Normal Saline) 1,000 mls @ 60 mls/hr IV ASDIRECTED [facility]ELS[facility] Propofol (Diprivan 20 Ml) Confirm Administered Dose 200 mg .ROUTE .STK-MED ONE Stop: 07/27/17 12:40 Sodium Polystyrene Sulfonate (Kayexalate) 15 gm PO ONETIME ONE Stop: 07/27/17 00:02 Last Admin: 07/27/17 00:19 Dose: 15 gm Sodium Polystyrene Sulfonate (Kayexalate) Confirm Administered Dose 15 gm .ROUTE .STK-MED ONE Stop: 07/27/17 04:56 Last Admin: 07/27/17 04:47 Dose: 15 gm Sodium Polystyrene Sulfonate (Kayexalate) 0 gm PO Q6H [facility] Last Admin: 07/27/17 04:47 Dose: 15 gm - Exam General: Alert, Oriented HEENT: Pupils Equal, Pupils Reactive, EOMI, Mucous Membr. Moist/[place] Neck: Supple Lungs: Clear to Auscultation, Normal Respiratory Effort Cardiovascular: Regular Rate, Regular Rhythm GI/Abdominal Exam: Normal Bowel Sounds, Soft, Non-Tender, No Organomegaly, No Distention, No Abnormal Bruit, No Mass, Pelvis Stable Back Exam: Normal Inspection, Full Range of Motion Extremities: Normal Inspection, Normal Range of Motion, Non-Tender, No Pedal Edema, Normal Capillary Refill Skin: Warm, Dry, Intact Neurological: No New Focal Deficit, Normal Gait Psy/Mental Status: Alert, Normal Affect, Normal Mood - Problem List Review Problem List Initiated/Reviewed/Updated: Yes - My Orders Last 24 Hours: My Active Orders 07/29/17 05:11 BASIC METABOLIC PANEL,BMP [CHEM] Routine - Plan Plan:: Assessment/plan: He is normal sinus rhythm at the present time.. #2. Hyponatremia: Sodium lstable at present time greater than 125 we'll continue with medication. I am concerned about his inability to control his blood sugars and sodium levels. We will watch him closely in the hospital we' ll discharge him as soon as medically stable. #3. DM II. Will monitor the BS's and treat. #4. Bladder dysfunction: There is residual urine of 300cc. If he is unable to pass urine Will replace the Godinez catheter. The Godinez catheter was removed this morning but has been unable to pass urine throughout the day. If his catheter needs to put back and I will contact the urologist for a possible transurethral resection as he has been on Cardura now for several months
[2017-07-29] MEDS ORDERED: Lidocaine 2% Jelly 10 ML Urojet MUCMEM ONE (01:41)
[2017-07-29] MEDS: Diltiazem 120 MG Cap.CD PO SCH (08:30)
[2017-07-29] MEDS: glipiZIDE 5 MG Tab PO SCH (08:30)
[2017-07-29] MEDS: metFORMIN 500 MG Tab.ER PO SCH (08:30)
[2017-07-29] MEDS: Doxazosin 4 MG Tab PO SCH (08:31)
[2017-07-29] MEDS: Aspirin 81 MG Tab.EC PO SCH (08:31)
--- NOTE | 2017-07-29 15:06 | PCM.PN ---
- General Info Date of Service: 07/29/17 - Review of Systems General: Reports: Weakness, Fatigue HEENT: Reports: No Symptoms Pulmonary: Reports: No Symptoms Cardiovascular: Reports: No Symptoms Gastrointestinal: Reports: No Symptoms Genitourinary: Reports: Retention Skin: Reports: No Symptoms Neurological: Reports: Weakness Psychiatric: Reports: No Symptoms - Patient Data Vitals - Most Recent: Last Vital Signs Temp 95.1 F L 07/29/17 07:57 Pulse 72 07/29/17 08:30 Resp 16 07/29/17 07:57 BP 89/52 L 07/29/17 09:50 Pulse Ox 95 07/29/17 07:57 Weight - Most Recent: 198 lb 12.8 oz I&O - Last 24 Hours: Intake & Output 07/29/17 07/29/17 07/29/17 06:59 14:59 22:59 Intake Total 600 450 Output Total 550 250 Balance 50 200 Lab Results Last 24 Hours: Laboratory Results - last 24 hr 07/29/17 Range/Units 05:52 Sodium 120 L (140-148) mmol/L Potassium 4.4 (3.6-5.2) mmol/L Chloride 89 L (100-108) mmol/L Carbon Dioxide 23 (21-32) mmol/L Anion Gap 12.4 (5.0-14.0) mmol/L BUN 31 H (7-18) mg/dL Creatinine 1.0 (0.8-1.3) mg/dL Est Cr Clr Drug Dosing 66.75 mL/min Estimated GFR (MDRD) > 60 (>60) Glucose 88 (74-106) mg/dL Calcium 8.1 L (8.5-10.1) mg/dL Med Orders - Current: Current Medications Aspirin (Halfprin) 81 mg PO DAILY [facility] Last Admin: 07/29/17 08:31 Dose: 81 mg Diltiazem HCl (Cardizem Cd) 120 mg PO BID [facility] Last Admin: 07/29/17 08:30 Dose: 120 mg Doxazosin Mesylate (Cardura) 4 mg PO DAILY [facility] Last Admin: 07/29/17 08:31 Dose: 4 mg Enoxaparin Sodium (Lovenox) 30 mg SUBCUT BEDTIME [facility] Last Admin: 07/28/17 20:39 Dose: 30 [facility] Admin: 07/29/17 08:30 Dose: 5 mg Metformin HCl (Glucophage Xr) 500 mg PO BIDMEALS [facility] Last Admin: 07/29/17 08:30 Dose: 500 mg Tamsulosin HCl (Flomax) 0.4 mg PO BEDTIME [facility] Last Admin: 07/28/17 20:39 Dose: 0.4 mg Discontinued Medications Adenosine (Adenocard) 6 mg IVPUSH NOW ONE Stop: 07/26/17 17:39 Last Admin: 07/26/17 17:48 Dose: 6 mg Adenosine (Adenocard) 12 mg IVPUSH NOW ONE Stop: 07/26/17 17:59 Last Admin: 07/26/17 18:11 Dose: 12 mg Adenosine (Adenocard) Confirm Administered Dose 12 mg .ROUTE .STK-MED ONE Stop: 07/26/17 18:02 Last Admin: 07/26/17 19:29 Dose: Not Given Diltiazem HCl (Diltiazem) 10 mg IVPUSH ONETIME ONE Stop: 07/26/17 18:10 Last Admin: 07/26/17 18:23 Dose: 10 mg Enoxaparin Sodium (Lovenox) 30 mg SUBCUT DAILY [facility] Last Admin: 07/26/17 22:45 Dose: 30 mg Diltiazem HCl 100 mg/ Sodium (Chloride) 100 mls @ 5 mls/hr IV TITRATE MELISSA; 5 MG /HR PRN Reason: Protocol Last Titration: 07/27/17 11:03 Dose: 5 mg/hr, 5 mls/hr Sodium Chloride (Sodium Chloride 3%) 1,000 mls @ 291 mls/hr IV ASDIRECTED [facility] Last Admin: 07/26/17 20:36 Dose: 100 mls/hr Sodium Chloride (Sodium Chloride 3%) 500 mls @ 50 mls/hr IV ASDIRECTED [facility] Last Admin: 07/27/17 06:02 Dose: 50 mls/hr Sodium Chloride (Normal Saline) 200 mls @ 999 mls/hr IV ASDIRECTED [facility] Last Admin: 07/27/17 05:47 Dose: 999 mls/hr Sodium Chloride (Normal Saline) 200 mls @ 999 mls/hr IV ASDIRECTED MELISSA Sodium Chloride (Normal Saline) 1,000 mls @ 100 mls/hr IV ASDIRECTED [facility] Last Admin: 07/27/17 10:33 Dose: 100 mls/hr Sodium Chloride (Normal Saline) 1,000 mls @ 200 mls/hr IV ASDIRECTED [facility] Sodium Chloride (Normal Saline) 1,000 mls @ 60 mls/hr IV ASDIRECTED [facility] Lidocaine HCl (Xylocaine 2% Jelly) 10 ml MUCMEM ONETIME ONE Stop: 07/29/17 01:42 Last Admin: 07/29/17 01:57 Dose: 10 ml Propofol (Diprivan 20 Ml) Confirm Administered Dose 200 mg .ROUTE .STK-MED ONE Stop: 07/27/17 12:40 Sodium Polystyrene Sulfonate (Kayexalate) 15 gm PO ONETIME ONE Stop: 07/27/17 00:02 Last Admin: 07/27/17 00:19 Dose: 15 gm Sodium Polystyrene Sulfonate (Kayexalate) Confirm Administered Dose 15 gm .ROUTE .STK-MED ONE Stop: 07/27/17 04:56 Last Admin: 07/27/17 04:47 Dose: 15 gm Sodium Polystyrene Sulfonate (Kayexalate) 0 gm PO Q6H [facility] Last Admin: 07/27/17 04:47 Dose: 15 gm - Exam General: Alert, Oriented HEENT: Pupils Equal, Pupils Reactive, EOMI, Mucous Membr. Moist/[place] Neck: Supple Lungs: Clear to Auscultation, Normal Respiratory Effort Cardiovascular: Regular Rate, Regular Rhythm GI/Abdominal Exam: Normal Bowel Sounds, Soft, Non-Tender, No Organomegaly, No Distention, No Abnormal Bruit, No Mass, Pelvis Stable Extremities: Normal Inspection, Normal Range of Motion, Non-Tender, No Pedal Edema, Normal Capillary Refill Peripheral Pulses: 1+: Radial (L), Radial (R) Skin: Warm, Dry, Intact Psy/Mental Status: Alert, Normal Affect, Normal Mood - Problem List Review Problem List Initiated/Reviewed/Updated: Yes - My Orders Last 24 Hours: My Active Orders 07/29/17 01:51 Urinary Catheter Assessment [RC] ASDIRECTED 07/29/17 02:00 Godinez Catheter Insertion [Insert Urinary Catheter] [OM.PC] Q24H - Plan Plan:: Assessment/plan: He is normal sinus rhythm at the present time.. #2. Hyponatremia: Sodium stable at present [id number]. I am concerned about his sodium levels. The drop in sodium with water restriction is of concern. I have soken with Dr. Gu and the hospitalist Car who has excepted Elbert. #3. DM II. Will monitor the BS's and treat. #4. Bladder dysfunction: There is residual urine of 300cc. If he is unable to pass urine the Godinez catheter was replaced as he was unable to pass urine. He has been of Cardura for >6 months. I feel he has an outlet obstruction. Will transfer to [place] in [place].
--- NOTE | 2017-07-29 15:14 | PCM.DCSUM1 ---
Discharge Summary - Hospital Course Brief History: He was in the office the day of admission stating he had diarrhea for 3-4 days and not having a lot of urine at the present time. He felt it was secondary to dehydration. He is a known DM II and blood sugars have to good control. He went home then called me a said he was unable to pass urine and felt he was obstructed. I told him to come in for a bladder scan. He then felt weaker and called the EMS and was brought to the ER and had a heart rate of 145. Adenosine was given and the heart rate dropped and then was in a atrial fib flutter pattern. He was on a cardizem drip. The sodium was reported as 110 upon admission. Repeat was 112. - Discharge Data Discharge Date: 07/29/17 Discharge Disposition: DC/Tfer to Acute Hospital 02 Condition: Fair - Patient Summary/Data Hospital Course: After admission the sodium was corrected from 112 to 120 and was then converted to a NSR using cardioversion when the BP dropped and the heart rate went up to 130. The trop was neg. with slight elevation of the CK. Water was restricted and the Sodium dropped to 120. He is a DM II. eGFR is 66. He is unable to pass uring so the neely cath was replaced. He will be seeing Dr. Gu. - Patient Instructions Diet: Heart Healthy Diet, Diabetic Diet Fluid Restriction: 1000 mL Activity: Cough & Deep Breathe - Discharge Plan Home Medications: Home Meds glipiZIDE [Glipizide] 5 mg PO BID 01/24/17 [History] metFORMIN [Glucophage] 500 mg PO BIDMEALS 01/24/17 [History] Aspirin 81 mg PO DAILY tab.chew 01/27/17 [Rx] Doxazosin [Cardura] 4 mg PO DAILY tablet 01/27/17 [Rx] Forms: ED Department Discharge Referrals: Rahul Estrada Sr, MD [Primary Care Provider] - - Discharge Summary/Plan Comment Discharge Summary/Plan Comment: He is normal sinus rhythm at the present time.. #2. Hyponatremia: Sodium stable at present [id number]. I am concerned about his sodium levels. The drop in sodium with water restriction is of concern. I have soken with Dr. Gu and the hospitalist Car who has excepted [facility]. #3. DM II. Will monitor the BS's and treat. #4. Bladder dysfunction: There is residual urine of 300cc. If he is unable to pass urine the Neely catheter was replaced as he was unable to pass urine. He has been of Cardura for >6 months. I feel he has an outlet obstruction. Will transfer to [facility] in [place]. - Patient Data Vitals - Most Recent: Last Vital Signs Temp 95.1 F L 07/29/17 07:57 Pulse 72 07/29/17 08:30 Resp 16 07/29/17 07:57 BP 89/52 L 07/29/17 09:50 Pulse Ox 95 07/29/17 07:57 Weight - Most Recent: 198 lb 12.8 oz I&O - Last 24 hours: Intake & Output 07/29/17 07/29/17 07/29/17 06:59 14:59 22:59 Intake Total 600 450 Output Total 550 250 Balance 50 200 Lab Results - Last 24 hrs: Laboratory Results - last 24 hr 07/29/17 Range/Units 05:52 Sodium 120 L (140-148) mmol/L Potassium 4.4 (3.6-5.2) mmol/L Chloride 89 L (100-108) mmol/L Carbon Dioxide 23 (21-32) mmol/L Anion Gap 12.4 (5.0-14.0) mmol/L BUN 31 H (7-18) mg/dL Creatinine 1.0 (0.8-1.3) mg/dL Est Cr Clr Drug Dosing 66.75 mL/min Estimated GFR (MDRD) > 60 (>60) Glucose 88 (74-106) mg/dL Calcium 8.1 L (8.5-10.1) mg/dL Med Orders - Current: Current Medications Aspirin (Halfprin) 81 mg PO DAILY [facility] Last Admin: 07/29/17 08:31 Dose: 81 mg Diltiazem HCl (Cardizem Cd) 120 mg PO BID [facility] Last Admin: 07/29/17 08:30 Dose: 120 mg Doxazosin Mesylate (Cardura) 4 mg PO DAILY [facility] Last Admin: 07/29/17 08:31 Dose: 4 mg Enoxaparin Sodium (Lovenox) 30 mg SUBCUT BEDTIME [facility] Last Admin: 07/28/17 20:39 Dose: 30 mg Glipizide (Glucotrol) 5 mg PO BIDAC [facility] Last Admin: 07/29/17 08:30 Dose: 5 mg Metformin HCl (Glucophage Xr) 500 mg PO BIDMEALS [facility] Last Admin: 07/29/17 08:30 Dose: 500 mg Tamsulosin HCl (Flomax) 0.4 mg PO BEDTIME [facility] Last Admin: 07/28/17 20:39 Dose: 0.4 mg Discontinued Medications Adenosine (Adenocard) 6 mg IVPUSH NOW ONE Stop: 07/26/17 17:39 Last Admin: 07/26/17 17:48 Dose: 6 mg Adenosine (Adenocard) 12 mg IVPUSH NOW ONE Stop: 07/26/17 17:59 Last Admin: 07/26/17 18:11 Dose: 12 mg Adenosine (Adenocard) Confirm Administered Dose 12 mg .ROUTE .STK-MED ONE Stop: 07/26/17 18:02 Last Admin: 07/26/17 19:29 Dose: Not Given Diltiazem HCl (Diltiazem) 10 mg IVPUSH ONETIME ONE Stop: 07/26/17 18:10 Last Admin: 07/26/17 18:23 Dose: 10 mg Enoxaparin Sodium (Lovenox) 30 mg SUBCUT DAILY [facility] Last Admin: 07/26/17 22:45 Dose: 30 mg Diltiazem HCl 100 mg/ Sodium (Chloride) 100 mls @ 5 mls/hr IV TITRATE MELISSA; 5 MG /HR PRN Reason: Protocol Last Titration: 07/27/17 11:03 Dose: 5 mg/hr, 5 mls/hr Sodium Chloride (Sodium Chloride 3%) 1,000 mls @ 291 mls/hr IV ASDIRECTED MELISSA Last Admin: 07/26/17 20:36 Dose: 100 mls/hr Sodium Chloride (Sodium Chloride 3%) 500 mls @ 50 mls/hr IV ASDIRECTED MELISSA Last Admin: 07/27/17 06:02 Dose: 50 mls/hr Sodium Chloride (Normal Saline) 200 mls @ 999 mls/hr IV ASDIRECTED MELISSA Last Admin: 07/27/17 05:47 Dose: 999 mls/hr Sodium Chloride (Normal Saline) 200 mls @ 999 mls/hr IV ASDIRECTED MELISSA Sodium Chloride (Normal Saline) 1,000 mls @ 100 mls/hr IV ASDIRECTED MELISSA Last Admin: 07/27/17 10:33 Dose: 100 mls/hr Sodium Chloride (Normal Saline) 1,000 mls @ 200 mls/hr IV ASDIRECTED MELISSA Sodium Chloride (Normal Saline) 1,000 mls @ 60 mls/hr IV ASDIRECTED MELISSA Lidocaine HCl (Xylocaine 2% Jelly) 10 ml MUCMEM ONETIME ONE Stop: 07/29/17 01:42 Last Admin: 07/29/17 01:57 Dose: 10 ml Propofol (Diprivan 20 Ml) Confirm Administered Dose 200 mg .ROUTE .STK-MED ONE Stop: 07/27/17 12:40 Sodium Polystyrene Sulfonate (Kayexalate) 15 gm PO ONETIME ONE Stop: 07/27/17 00:02 Last Admin: 07/27/17 00:19 Dose: 15 gm Sodium Polystyrene Sulfonate (Kayexalate) Confirm Administered Dose 15 gm .ROUTE .STK-MED ONE Stop: 07/27/17 04:56 Last Admin: 07/27/17 04:47 Dose: 15 gm Sodium Polystyrene Sulfonate (Kayexalate) 0 gm PO Q6H [facility] Last Admin: 07/27/17 04:47 Dose: 15 gm *Q Meaningful Use (DIS) - VTE *Q VTE Criteria *Q: - Stroke *Q Stroke Criteria *Q: - AMI *Q AMI Criteria *Q:
[2017-07-29 15:17] VITALS: BP 128/56
== END 2017-07-29 16:10 | DRG 309 ==
LOC: JP.ED 17:29 → JP.ICU 19:10
PROVIDERS: ADMIT Internal Medicine; ATTEND Internal Medicine
PROC: 5A2204Z Restoration of Cardiac Rhythm, Single (ICD-10-PCS; principal; 2017-07-27)
DX: I48.91 Unspecified atrial fibrillation (principal); E87.1 Hypo-osmolality and hyponatremia; I48.92 Unspecified atrial flutter; E11.9 Type 2 diabetes mellitus without complications; Z87.891 Personal history of nicotine dependence; N32.0 Bladder-neck obstruction; R53.1 Weakness; R42 Dizziness and giddiness; R00.0 Tachycardia, unspecified; R33.9 Retention of urine, unspecified; M19.90 Unspecified osteoarthritis, unspecified site; Z85.828 Personal history of other malignant neoplasm of skin; Z79.82 Long term (current) use of aspirin; Z79.84 Long term (current) use of oral hypoglycemic drugs
CPT/HCPCS: 36415; 51702; 71045 ×2; 80053; 82962; 84443; 84484; 85025; 93005; 96361; 96374; 96375; 99285; J0153 ×2; J3490 ×2; J7030; 51798; 80048; 81001; 82550; 92960; 93010; 99284; A9270-GY; J1650; J2704; J7050; J7131